=== PATIENT | female | born 1955 | race Caucasian/White ===

== ENCOUNTER 2018-01-28 22:53 | Inpatient (IN) | payer MEDICARE, OTHER ==
[~2018-01-28] VITALS: Ht 162.6 cm; Wt 65.0 kg
[~2018-01-28 22:53] MED LIST: ATOR80TA41 PO; BACL20TA PO; DIPH50TA PO; ECASA PO; ENAL10 PO; HCTZ25 PO; LORA-392 PO; NICO14T TD; RANI150 PO; TIZA4 PO
[2018-01-28 23:05] VITALS: BP 122/73; PULSE 52; PULSE 89; RESP 12; TEMP 97.7; O2SAT 96
[2018-01-28] MEDS ORDERED: SODIUM CHLOR 0.9% 1000 ML INJ 1,000 ML IV ONE (23:45)
--- NOTE | 2018-01-28 23:51 | PD ---
HPI Chief Complaint: Altered Mental Status Time Seen by Provider: 23:07 Travel History International Travel<30 days: No Contact w/Intl Traveler<30days: No Traveled to known affect area: No History of Present Illness HPI The patient is a 62 year old female who presents to the [facility] emergency department with a history of altered mentation and reportedly feeling unwell in general that began in the afternoon today. The patient is a resident at a local care home. The patient because of feeling unwell and having generalized fatigue refused to eat dinner and also refused to take her evening medications. The patient is normally on 3 L nasal cannula O2 continuously related to a history of COPD. The patient continues to smoke 1 pack of cigarettes per day. According to the record, the patient's O2 saturations were diminished on her usual 3 L down into the 80s. The patient also had scattered rhonchi according to ambulance services. The patient had IV access obtained prior to arrival. The patient's temperature was noted by ambulance services to be low at 97.4. She was noted to be bradycardic in the 40s-50s with an initial blood pressure of 92/54. The patient's blood sugar was 91. The patient reportedly was started on Augmentin 2 days ago related to a urinary tract infection. On arrival to this facility, the patient is drowsy. She has a dry mouth. She denies having any pain. She is able to state her name. She is also able to state her date of . The patient's history is limited as the patient is staring at the ceiling and is unable or unwilling to answer all of the questions that I am asking. The patient with repeat stimulation is attempted to answer simple questions. 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, history of tobacco use, acid reflux, COPD, recurrent urinary tract infections, hypertension, anxiety disorder, degenerative disc disease, arthritis Arthritis: Yes Asthma: No Autoimmune Disease: No Anxiety: Yes Depression: No Heart Rhythm Problems: Yes Cancer: No Cardiovascular Problems: Yes High Cholesterol: No Chemotherapy: No Chest Pain: No Congestive Heart Failure: No COPD: Yes Cerebrovascular Accident: Yes (right side hemiparesis) Diabetes: No Diminished Hearing: No Endocrine: No GERD: Yes Genitourinary: Yes Headaches: Yes Hypertension: Yes Immune Disorder: No Kidney Stones: No Musculoskeletal: Yes Neurologic: Yes Psychiatric: Yes Reproductive: No Respiratory: Yes Immunizations Current: No Migraines: No Radiation Therapy: No Renal Failure: No Seizures: No Sickle Cell Disease: No Sleep Apnea: No Thyroid Disease: No Tetanus Vaccination: Unknown Menopausal: Yes Past Surgical History Narrative Surgical The patient's past surgical history is significant for ankle surgery, stomach surgery Abdominal Surgery: No AICD: No Arteriovenous Shunt: No Cardiac Surgery: No Ear Surgery: No Endocrine Surgery: No Eye Surgery: No Genitourinary Surgery: No Gynecologic Surgery: No Insulin Pump: No Joint Replacement: No Neurologic Surgery: Yes (CVA 2013) Oral Surgery: No Pacemaker: No Thoracic Surgery: No Other Surgery: Yes (STOMACH SURGERY, FX ANKLE SURGERY) Social History Alcohol Use: No Tobacco Use: Yes (1 pack per day) Substance Use: No Allergies-Medications (Allergen,Severity, Reaction): Coded Allergies: No Known Allergies (Verified Adverse Reaction, Unknown, 01/28/18) Reported Meds & Prescriptions Reported Meds & Active Scripts Active Reported Tylenol (Acetaminophen) 325 Mg Tab 325 Mg PO ONCE Aleve Arthritis (Naproxen Sodium) 220 Mg Tab 220 Mg PO BID Aspirin 81 Mg Chew 81 Mg CHEW DAILY Augmentin (Amoxicillin-Clavulanate) 875-125 Mg Tab 1 Tab PO BID Vitamin D-1000 (Cholecalciferol) 1,000 Unit Tab 5,000 Units PO DAILY Vitamin C (Ascorbic Acid) 1,000 Mg Tablet.er Trazodone (Trazodone HCl) 50 Mg Tab 75 Mg PO HS Tizanidine (Tizanidine HCl) 2 Mg Tab 2 Mg PO TID Ranitidine (Ranitidine HCl) 150 Mg Tab 150 Mg PO BID Propranolol (Propranolol HCl) 10 Mg Tab 10 Mg PO Q12HR Nicotine Patch (Nicotine) 14 Mg/24 Hr Patch 14 Mg T-DERMAL DAILY Lyrica (Pregabalin) 150 Mg Cap 150 Mg PO TID Klonopin (Clonazepam) 0.5 Mg Tab 0.5 Mg PO QID Gabapentin 600 Mg Tab 600 Mg PO TID Ferrous Sulfate 325 Mg (65 Mg Iron) Tablet 325 Mg PO DAILY Docusate Sodium-Senna (Sennosides-Docusate Sodium) 8.6-50 Mg Tab 1 Tab PO HS Nuedexta 20-10 mg (Dextromethorphan HBr-Quinidine) 20 Mg-10 Mg Cap 1 Cap PO DAILY Flexeril (Cyclobenzaprine HCl) 5 Mg Tab 5 Mg PO BID Bupropion HCl ER 12 HR (Bupropion HCl) 150 Mg Tab 150 Mg PO BID Budesonide Neb 0.5 Mg/2 Ml Neb 0.5 Mg NEB DAILY NEB Baclofen 20 Mg Tab 20 Mg PO TID Review of Systems ROS Limitations: Altered Mental Status, Poor Historian Except as stated in HPI: all other systems reviewed are Neg Neurologic: Positive: Weakness (Generalized weakness and fatigue), Change in Mentation, No: Focal Abnormalities, Sensory Disturbance Psychiatric: No: Depression Endocrine: No: Polydipsia Hematologic/Lymphatic: No: Easy Bruising Physical Exam Narrative General: The patient is a well-developed well-nourished female in no acute distress, staring up to the ceiling on my arrival to the room. Head and Neck exam: Head is normocephalic atraumatic. Eyes: EOMI, pupils are equal round and reactive to light. Nose: Midline septum with pink mucous membranes Mouth: Dentition unremarkable. Dry mucus membranes. Posterior oropharynx is not erythematous. No tonsillar hypertrophy. Uvula midline. Airway patent. Neck: No palpable lymphadenopathy. No nuchal rigidity. No thyromegaly. Cardiovascular: Sinus bradycardia in the 50s without murmurs, gallops, or rubs. No pulse deficit to the extremities on simultaneous auscultation and palpation of his radial artery. Lungs: Clear to auscultation bilaterally. No wheezes, rhonchi, or rales. Abdomen: Soft, without tenderness to palpation in all 4 quadrants of the abdomen. No guarding, rebound, or rigidity. Normal bowel sounds are audible. No tenderness on palpation of McBurney's point. Negative Smith sign. Extremities: No clubbing, cyanosis, or edema. 2+ pulses in all 4 extremities. No calf tenderness on palpation. Back: No costovertebral angle tenderness to palpation. Neurologic Exam: The patient has residual right-sided weakness related to a prior stroke. The patient in general appears to be drowsy and has difficulty following commands, however on repeated redirection the patient is noted to move all extremities. The patient has decreased sensation on the right side presumably related to her prior stroke from reviewing the electronic medical record. The patient is oriented to person, birthdate, however not current time , place, or situation. Skin Exam: No rash noted. Intact skin that is warm and dry. Data Data Last Documented VS Vital Signs Date Time Temp Pulse Resp B/P (MAP) Pulse Ox O2 Delivery O2 Flow Rate FiO2 01/29/18 01:58 58 16 118/63 (81) 96 Nasal Cannula 2.00 01/28/18 23:05 97.7 Orders Orders Electrocardiogram (01/28/18 23:33) Complete Blood Count With Diff (01/28/18 23:33) Comprehensive Metabolic Panel (01/28/18 23:33) Creatine Kinase (Cpk) (01/28/18 23:33) Ckmb (Isoenzyme) Profile (01/28/18:) Troponin I (01/28/18:) B-Type Natriuretic Peptide (01/28/18 23:33) Prothrombin Time / Inr (Pt) (01/28/18 23:33) Act Partial Throm Time (Ptt) (01/28/18 23:33) Blood Culture (01/28/18 23:) C-Reactive Protein (Crp) (01/28/18 23:33) Lipase (01/28/18 23:33) Urinalysis - C+S If Indicated (01/28/18 23:33) Magnesium (Mg) (01/28/18:) Thyroid Stimulating Hormone (01/28/18 23:33) Chest, Single Ap (01/28/18 23:33) Iv Access Insert/Monitor (01/28/18 23:33) Ecg Monitoring (01/28/18 23:33) Oximetry (01/28/18 23:33) Urinary Catheter Insert/Apply (01/28/18 23:33) Drug Screen, Random Urine (01/28/18 23:33) Alcohol (Ethanol) (01/28/18 23:33) Lactic Acid Sepsis Protocol (01/28/18 23:33) Sodium Chlor 0.9% 1000 Ml Inj (Ns 1000 M (01/28/18 23:45) Ct Brain W/O Iv Contrast(Rout) (01/29/18 23:33) Urine Culture (01/28/18 23:30) Cefepime Inj (Maxipime Inj) (01/29/18 00:54) Admit Order (Ed Use Only) (01/29/18 02:49) Labs Laboratory Tests Test 01/28/18 23:30 White Blood Count 7.8 TH/MM3 Red Blood Count 4.64 MIL/MM3 Hemoglobin 14.5 GM/DL Hematocrit 43.4 % Mean Corpuscular Volume 93.6 FL Mean Corpuscular Hemoglobin 31.2 PG Mean Corpuscular Hemoglobin Concent 33.4 % Red Cell Distribution Width 13.1 % Platelet Count 338 TH/MM3 Mean Platelet Volume 8.7 FL Neutrophils (%) (Auto) 49.6 % Lymphocytes (%) (Auto) 32.9 % Monocytes (%) (Auto) 7.6 % Eosinophils (%) (Auto) 9.6 % Basophils (%) (Auto) 0.3 % Neutrophils # (Auto) 3.9 TH/MM3 Lymphocytes # (Auto) 2.6 TH/MM3 Monocytes # (Auto) 0.6 TH/MM3 Eosinophils # (Auto) 0.7 TH/MM3 Basophils # (Auto) 0.0 TH/MM3 CBC Comment DIFF FINAL Differential Comment Prothrombin Time 9.8 SEC Prothromb Time International Ratio 1.0 RATIO Activated Partial Thromboplast Time 21.4 SEC Urine Color YELLOW Urine Turbidity CLEAR Urine pH 6.5 Urine Specific [place] 1.015 Urine Protein NEG mg/dL Urine Glucose (UA) NEG mg/dL Urine Ketones NEG mg/dL Urine Occult Blood NEG Urine Nitrite POS Urine Bilirubin NEG Urine Urobilinogen LESS THAN 2.0 MG/DL Urine Leukocyte Esterase SMALL Urine RBC 1 /hpf Urine WBC 3 /hpf Urine Bacteria MANY /hpf Urine Mucus FEW /lpf Microscopic Urinalysis Comment CULTURE INDICATED Blood Urea Nitrogen 27 MG/DL Creatinine 1.04 MG/DL Random Glucose 80 MG/DL Total Protein 6.6 GM/DL Albumin 2.8 GM/DL Calcium Level 9.0 MG/DL Magnesium Level 2.3 MG/DL Alkaline Phosphatase 94 U/L Aspartate Amino Transf (AST/SGOT) 18 U/L Alanine Aminotransferase (ALT/SGPT) 30 U/L Total Bilirubin 0.4 MG/DL Sodium Level 141 MEQ/L Potassium Level 4.7 MEQ/L Chloride Level 107 MEQ/L Carbon Dioxide Level 26.1 MEQ/L Anion Gap 8 MEQ/L Estimat Glomerular Filtration Rate 54 ML/MIN Lactic Acid Level 1.0 mmol/L Total Creatine Kinase 57 U/L Troponin I LESS THAN 0.02 NG/ML C-Reactive Protein 3.20 MG/DL B-Type Natriuretic Peptide 15 PG/ML Lipase 101 U/L Thyroid Stimulating Hormone 3rd Gen 1.820 uIU/ML Urine Opiates Screen NEG Urine Barbiturates Screen NEG Urine Amphetamines Screen NEG Urine Benzodiazepines Screen NEG Urine Cocaine Screen NEG Urine Cannabinoids Screen NEG Ethyl Alcohol Level LESS THAN 3 MG/DL MDM Medical Decision Making Medical Screen Exam Complete: Yes Emergency Medical Condition: Yes Medical Record Reviewed: Yes Differential Diagnosis Intracranial abnormality, versus encephalopathy, versus sepsis, versus urinary tract infection, versus pneumonia, versus sedation from medications Narrative Course During the course of the patient's emergency department visit, the patient's history, examination, and differential diagnosis were reviewed with the patient. The patient was placed on a teletypesetter monitor with oximetry and frequent blood pressure monitoring. The patient had [-] IV access obtained and blood work sent for analysis. The patient had an EKG done on arrival that shows a sinus bradycardia heart rate of 52, QRS duration is 117 the [address] segment elevation. T waves are inverted in V1. The patient has a Q in lead III. The patient was initially provided normal saline 1 L IV fluid bolus. The patient was started on broad-spectrum antibiotic of cefepime when she was noted to have a urinary tract infection that had failed outpatient management. The patient's laboratory studies were reviewed and remarkable for 01/28/18 23:30 Total Protein 6.6, Albumin 2.8 L, Calcium Level 9.0, Magnesium Level 2.3, Alkaline Phosphatase 94, Aspartate Amino Transf (AST/SGOT) 18, Alanine Aminotransferase (ALT/SGPT) 30, Total Bilirubin 0.4, initial set of cardiac enzymes are unremarkable. The patient's BUN and creatinine are elevated compared to prior values in a patient with dry mucous membranes consistent with dehydration, BNP is within normal limits at 15, albumin 2.8, lipase 101, TSH 1.82, lactic acid is 1, PT 9.8, PTT 21.4, urinalysis shows positive nitrite small leukocyte esterase many bacteria, culture indicated. Urine drug screen is negative, alcohol level is less than 3 per Radiology studies were reviewed and remarkable for Last Impressions Chest X-Ray 01/28/18 0983 Signed Impressions: CONCLUSION: 1. Patchy infiltrate right lower lung. 2. Mild pulmonary venous congestion. CT scan of the brain shows no acute intracranial hemorrhage. The patient's chest x-ray was read as showing mild pulmonary venous congestion, however the patient's BNP is normal. Patchy infiltrate was noted in the right lower lung, or Zithromax was added onto the patient's regimen to cover for atypical causes of pneumonia. The patient's results were discussed with the patient, including the plan of care. I explained that further testing and/ or monitoring is indicated based on the patient's history, examination, and/ or laboratory findings. Therefore, I recommended admission for additional evaluation. The patient expressed understanding and was agreeable with this plan. The patient was admitted to the hospital in stable condition and sent to a bed under the care of Dr. Palomino. Physician Communication Physician Communication The patient's case including history, pertinent physical examination findings, and laboratory studies were discussed with Dr. Palomino. It was agreed that the patient would be admitted to Dr. Palomino's service. Diagnosis Primary Impression: UTI (urinary tract infection) Qualified Codes: N39.0 - Urinary tract infection, site not specified Additional Impressions: Pneumonia Qualified Codes: J18.1 - Lobar pneumonia, unspecified organism Altered mental status Qualified Codes: R40.0 - Somnolence Admitting Information Admitting Physician Requests: Admit Zahra Richey MD Jan 28, 2018 23:51
[2018-01-29] VITALS (9 sets, daily range): BP systolic 104–161; BP diastolic 54–72; PULSE 49–75; RESP 16–22; TEMP 96.4–98.5; O2SAT 94–98
[2018-01-29 00:26] LABS: BACTERIA, URINE MANY /hpf; BILIRUBIN, URINE NEG (NEG); BLOOD, URINE NEG (NEG); GLUCOSE,URINE NEG (NEG); KETONE, URINE NEG (NEG); MUCUS URINE FEW /lpf (OCC); NITRITE,URINE POS (NEG); PH, URINE 6.5 (5.0-8.5); URINE COLOR YELLOW (YELLW/STRAW); URINE LEUKOCYTE ESTERASE SMALL (NEG)
[2018-01-29 00:29] LABS: AUTOMATED NEUTROPHIL # 3.9 TH/MM3 (1.8-7.7); BASOPHIL % 0.3 % (0.0-2.0); EOSINOPHIL # 0.7 TH/MM3 (0-0.4); EOSINOPHIL % 9.6 % (0.0-4.0); HEMATOCRIT 43.4 % (35.0-46.0); HEMOGLOBIN 14.5 GM/DL (11.6-15.3); LYMPH % 32.9 % (9.0-44.0); LYMPHOCYTE # 2.6 TH/MM3 (1.0-4.8); MEAN CELL VOLUME 93.6 FL (80.0-100.0); MEAN CORPUSCULAR HEMOGLOBIN 31.2 PG (27.0-34.0); MEAN CORPUSCULAR HGB CONC 33.4 % (32.0-36.0); MEAN PLATELET VOLUME 8.7 FL (7.0-11.0); MONO % 7.6 % (0.0-8.0); MONOCYTE # 0.6 TH/MM3 (0-0.9); NEUT % 49.6 % (16.0-70.0); PLATELET COUNT 338 TH/MM3 (150-450); RED BLOOD COUNT 4.64 MIL/MM3 (4.00-5.30); RED CELL DISTRIBUTION WIDTH 13.1 % (11.6-17.2); WHITE BLOOD COUNT 7.8 TH/MM3 (4.0-11.0)
--- NOTE | 2018-01-29 00:41 | RADRPT ---
EXAM DATE: 01/29/2018 12:38 AM EDT AGE/SEX: 62 years / Female INDICATIONS: Shortness of breath. CLINICAL DATA: This is the patient's initial encounter. Patient reports that signs and symptoms have been present for 1 day and indicates a pain score of Nonresponsive. MEDICAL/SURGICAL HISTORY: Chronic obstructive pulmonary disease. Hypertension. None. COMPARISON: No prior [facility] exams available for comparison. FINDINGS: Patchy infiltrate in the right lung base. The left lung is grossly clear. There is mild pulmonary korina ous congestion. There is no pleural effusions. The heart size is within normal limits. The bony struc tures are grossly intact. CONCLUSION: 1. Patchy infiltrate right lower lung. 2. Mild pulmonary venous congestion. Electronically signed by: Ramiro Madrid MD 01/29/2018 12:39 AM EDT
[2018-01-29 00:43] LABS: PROTHROMBIN TIME - PATIENT 9.8 SEC (9.8-11.6)
[2018-01-29] MEDS ORDERED: CEFEPIME INJ 2,000 MG in SODIUM CHLORIDE 0.9% INJ 100 ML IV STA (00:54)
[2018-01-29 00:59] LABS: ALBUMIN 2.8 GM/DL (3.4-5.0); ALKALINE PHOSPHATASE 94 U/L (45-117); ALT (GPT) 30 U/L (10-53); AST (GOT) 18 U/L (15-37); BICARBONATE 26.1 MEQ/L (21.0-32.0); BLOOD UREA NITROGEN 27 MG/DL (7-18); CHLORIDE 107 MEQ/L (98-107); CREATININE 1.04 MG/DL (0.50-1.00); GLOMERULAR FILTRATION RATE 54 ML/MIN (>89); GLUCOSE,RANDOM 80 MG/DL (74-106); MAGNESIUM 2.3 MG/DL (1.5-2.5); SODIUM (NA) 141 MEQ/L (136-145); TOTAL BILIRUBIN ADULT 0.4 MG/DL (0.2-1.0); TOTAL PROTEIN 6.6 GM/DL (6.4-8.2); TROPONIN I LESS THAN 0.02 NG/ML (0.02-0.05)
--- NOTE | 2018-01-29 01:15 | RADRPT ---
EXAM DATE: 01/29/2018 1:04 AM EDT AGE/SEX: 62 years / Female INDICATIONS: Altered mental status. CLINICAL DATA: This is the patient's initial encounter. Patient reports that signs and symptoms have been present for 1 day and indicates a pain score of Nonresponsive. MEDICAL/SURGICAL HISTORY: Cerebrovascular disease. Hypertension. None. RADIATION DOSE: 56.35 CTDI (mGy) COMPARISON: synapse default, CT BRAIN W/O CONTRAST, 05/01/2016. . TECHNIQUE: CT of the head without contrast. Using automated exposure control and adjustment of the mA and/or kV according to patient size, radiation dose was kept as low as reasonably achievable to ob tain optimal diagnostic quality images. FINDINGS: Cerebrum: The ventricles are normal for age. No evidence of midline shift, mass lesion, hemorrhage or acute infarction. No extraaxial fluid collections are seen. Posterior Fossa: The cerebellum and brainstem are intact. Tiny old infarct in the midbrain. The 4th ventricle is midline. The cerebellopontine angle is unremarkable. Extracranial: The visualized portion of the orbits is intact. Skull: The calvaria is intact. No evidence of skull fracture. No significant changes compared to the prior exam. CONCLUSION: 1. No acute intracranial hemorrhage. 2. Stable CT brain compared to the prior study. Electronically signed by: Ramiro Madrid MD 01/29/2018 1:14 AM EDT
[2018-01-29] MEDS ORDERED: NUED20CA PO (01:49)
[2018-01-29] MEDS ORDERED: GABA600T PO (01:49)
[2018-01-29] MEDS ORDERED: BUPR150T5 PO (01:49)
[2018-01-29] MEDS ORDERED: CYCL5TAB PO (01:49)
[2018-01-29] MEDS ORDERED: BACL20TA PO (01:49)
[2018-01-29] MEDS ORDERED: BUDE0.5S NEB (01:49)
[2018-01-29] MEDS ORDERED: DOCU8.6T PO (01:49)
[2018-01-29] MEDS ORDERED: CLON.5 PO (01:49)
[2018-01-29] MEDS ORDERED: NICO14DI T-DERMAL (01:49)
[2018-01-29] MEDS ORDERED: FERR325T18 PO (01:49)
[2018-01-29] MEDS ORDERED: LYRI150C PO (01:49)
[2018-01-29] MEDS ORDERED: PROP10TA6 PO (01:49)
[2018-01-29] MEDS ORDERED: ALEV220T14 PO (03:41)
[2018-01-29] MEDS ORDERED: VITA1000 PO (03:41)
[2018-01-29] MEDS ORDERED: TIZA2TAB PO (03:41)
[2018-01-29] MEDS ORDERED: ASCO100029 (03:41)
[2018-01-29] MEDS ORDERED: RANI150T PO (03:41)
[2018-01-29] MEDS ORDERED: TRAZ50TA12 PO (03:41)
[2018-01-29] MEDS ORDERED: AUGM875T3 PO (03:41)
[2018-01-29] MEDS ORDERED: ASPI-516 CHEW (03:41)
[2018-01-29] MEDS ORDERED: TYLE325T PO (03:41)
[2018-01-29] MEDS ORDERED: AZITHROMYCIN INJ 500 MG in SODIUM CHLOR 0.9% 250 ML INJ 250 ML IV ONE (05:00)
[2018-01-29] MEDS ORDERED: PILL SPLITTER OTHER PRN (05:30)
[2018-01-29] MEDS ORDERED: LACTULOSE SYRUP 20 GM/30 ML CUP PO PRN (05:30)
[2018-01-29] MEDS ORDERED: NALOXONE HCL 0.4 MG/ML AMP IV PUSH PRN (05:30)
[2018-01-29] MEDS ORDERED: BISACODYL 10 MG SUPP RECTAL PRN (05:30)
[2018-01-29] MEDS ORDERED: MAGNESIUM HYDROXIDE SUSP 30 ML CUP PO PRN (05:30)
[2018-01-29] MEDS ORDERED: ACETAMINOPHEN 325 MG TAB PO ONE (05:30)
[2018-01-29] MEDS ORDERED: SENNOSIDES 8.6 MG TAB PO PRN (05:30)
[2018-01-29] MEDS: RESP: BUDESONIDE 0.5 MG/2 ML NEB NEB SCH (07:42)
--- NOTE | 2018-01-29 08:53 | HHI.HP ---
History of Present Illness Primary Care Physician Harvinder Quick MD Admission Diagnosis AMS, UTI, Dehydration Diagnoses: History of Present Illness The patient is a 62 year old female came to emergency department for altered mentation and reportedly feeling unwell in general that began in the afternoon today. The patient is a resident at [facility]. She is normally on 3 L nasal cannula O2 continuously related to a history of COPD. The patient continues to smoke 1 pack of cigarettes per day. She voices she quit 11 days ago. The patient also had scattered rhonchi according to ambulance services. She was started on Augmentin 2 days ago related to a urinary tract infection. She has a dry mouth, lip [peeling. She denies having any pain. She is able to state her name, and she can tell me the month "January" She is unsure how and why she is in the hospital. UA positive for nitrites, she does have some LISA. cxr show RLL pneumonia. (Jennifer Arguello) Past Family Social History Allergies: Coded Allergies: No Known Allergies (Verified Allergy, Unknown, 01/29/18) Past Medical History CVA HTN Anxiety DDD Arthritis COPD GERD Reported Medications Tylenol (Acetaminophen) 325 Mg Tab 325 Mg PO ONCE Aleve Arthritis (Naproxen Sodium) 220 Mg Tab 220 Mg PO BID Aspirin 81 Mg Chew 81 Mg CHEW DAILY Augmentin (Amoxicillin-Clavulanate) 875-125 Mg Tab 1 Tab PO BID Vitamin D-1000 (Cholecalciferol) 1,000 Unit Tab 5,000 Units PO DAILY Vitamin C (Ascorbic Acid) 1,000 Mg Tablet.er Trazodone (Trazodone HCl) 50 Mg Tab 75 Mg PO HS Tizanidine (Tizanidine HCl) 2 Mg Tab 2 Mg PO TID Ranitidine (Ranitidine HCl) 150 Mg Tab 150 Mg PO BID Propranolol (Propranolol HCl) 10 Mg Tab 10 Mg PO Q12HR Nicotine Patch (Nicotine) 14 Mg/24 Hr Patch 14 Mg T-DERMAL DAILY Lyrica (Pregabalin) 150 Mg Cap 150 Mg PO TID Klonopin (Clonazepam) 0.5 Mg Tab 0.5 Mg PO QID Gabapentin 600 Mg Tab 600 Mg PO TID Ferrous Sulfate 325 Mg (65 Mg Iron) Tablet 325 Mg PO DAILY Docusate Sodium-Senna (Sennosides-Docusate Sodium) 8.6-50 Mg Tab 1 Tab PO HS Nuedexta 20-10 mg (Dextromethorphan HBr-Quinidine) 20 Mg-10 Mg Cap 1 Cap PO DAILY Flexeril (Cyclobenzaprine HCl) 5 Mg Tab 5 Mg PO BID Bupropion HCl ER 12 HR (Bupropion HCl) 150 Mg Tab 150 Mg PO BID Budesonide Neb 0.5 Mg/2 Ml Neb 0.5 Mg NEB DAILY NEB Baclofen 20 Mg Tab 20 Mg PO TID Active Ordered Medications Current Medications Medications (Trade) Dose Ordered Sig/Tim Route Start Time Stop Time Status Last Admin (Aspirin Chew) 81 mg DAILY CHEW 01/29/18 09:00 (Pulmicort Respule Neb) 0.5 mg DAILY NEB NEB 01/29/18 08:00 (Vitamin D3) 5,000 units DAILY PO 01/29/18 09:00 (KlonoPIN) 0.5 mg QID PO 01/29/18 09:00 (Ferrous Sulfate) 325 mg DAILY PO 01/29/18 09:00 (Neurontin) 600 mg TID PO 01/29/18 09:00 (Inderal) 10 mg Q12HR PO 01/29/18 09:00 (Madeleine-Colace) 1 tab HS PO 01/29/18 21:00 (Zanaflex) 2 mg TID PO 01/29/18 09:00 (Desyrel) 75 mg HS PO 01/29/18 21:00 Patient Own Medication PT OWN MED: (Dextromethorphan HBr-Quinid... DAILY PO 01/29/18 09:00 Future Hold (Naprosyn) 250 mg BID PO 01/29/18 09:00 (Pepcid) 20 mg BID PO 01/29/18 09:00 (Pill Splitter) 1 ea UNSCH PRN OTHER 01/29/18 05:30 Cefepime HCl 2000 mg/Sodium Chloride 100 ml @ 200 mls/hr Q12H IV 01/29/18 14:00 (NS Flush) 2 ml UNSCH PRN IV FLUSH 01/29/18 05:30 (NS Flush) 2 ml BID IV FLUSH 01/29/18 09:00 (Lovenox Inj) 30 mg Q24H SQ 01/29/18 09:00 (Narcan Inj) 0.4 mg UNSCH PRN IV PUSH 01/29/18 05:30 (Madeleine-Colace) 1 tab BID PO 01/29/18 09:00 (Milk Of Magnesia Liq) 30 ml Q12H PRN PO 01/29/18 05:30 (Senokot) 17.2 mg Q12H PRN PO 01/29/18 05:30 (Dulcolax Supp) 10 mg DAILY PRN RECTAL 01/29/18 05:30 (Lactulose Liq) 30 ml DAILY PRN PO 01/29/18 05:30 Family History Unknown Social History 1 pck day smoker quit Denies ETOH (Jennifer Arguello) Physical Exam Vital Signs Vital Signs Date Time Temp Pulse Resp B/P (MAP) Pulse Ox O2 Delivery O2 Flow Rate FiO2 01/29/18 07:25 97.9 56 22 161/64 (96) 94 01/29/18 06:59 54 01/29/18 06:57 96.4 59 18 155/72 (99) 98 01/29/18 03:14 49 16 142/68 (92) 95 Nasal Cannula 2.00 01/29/18 01:58 58 16 118/63 (81) 96 Nasal Cannula 2.00 01/28/18 23:32 51 18 95 Nasal Cannula 3.00 01/28/18 23:05 97.7 52 12 122/73 (89) 96 Physical Exam GENERAL no apparent distress oral mucosa dry lips, peeling. SKIN: No rashes, ecchymoses or lesions. Cool and dry. HEAD: Atraumatic. Normocephalic. No temporal or scalp tenderness. EYES: Pupils equal round and reactive. ENT: Nose without bleeding. Airway patent. NECK: Trachea midline. No JVD or lymphadenopathy. Supple, nontender CARDIOVASCULAR: Regular rate and rhythm without murmurs, gallops, or rubs. RESPIRATORY Breath sounds equal bilaterally. slight wheezing, diminished at base GASTROINTESTINAL: Abdomen soft, non-tender, nondistended. MUSCULOSKELETAL: Extremities without clubbing, cyanosis, or edema. NEUROLOGICAL: Awake and alert. Cranial nerves II through XII intact. Normal speech. Laboratory Laboratory Tests Test 01/28/18 23:30 White Blood Count 7.8 Red Blood Count 4.64 Hemoglobin 14.5 Hematocrit 43.4 Mean Corpuscular Volume 93.6 Mean Corpuscular Hemoglobin 31.2 Mean Corpuscular Hemoglobin Concent 33.4 Red Cell Distribution Width 13.1 Platelet Count 338 Mean Platelet Volume 8.7 Neutrophils (%) (Auto) 49.6 Lymphocytes (%) (Auto) 32.9 Monocytes (%) (Auto) 7.6 Eosinophils (%) (Auto) 9.6 Basophils (%) (Auto) 0.3 Neutrophils # (Auto) 3.9 Lymphocytes # (Auto) 2.6 Monocytes # (Auto) 0.6 Eosinophils # (Auto) 0.7 Basophils # (Auto) 0.0 CBC Comment DIFF FINAL Differential Comment Prothrombin Time 9.8 Prothromb Time International Ratio 1.0 Activated Partial Thromboplast Time 21.4 Urine Color YELLOW Urine Turbidity CLEAR Urine pH 6.5 Urine Specific [place] 1.015 Urine Protein NEG Urine Glucose (UA) NEG Urine Ketones NEG Urine Occult Blood NEG Urine Nitrite POS Urine Bilirubin NEG Urine Urobilinogen LESS THAN 2.0 Urine Leukocyte Esterase SMALL Urine RBC 1 Urine WBC 3 Urine Bacteria MANY Urine Mucus FEW Microscopic Urinalysis Comment CULTURE INDICATED Blood Urea Nitrogen 27 Creatinine 1.04 Random Glucose 80 Total Protein 6.6 Albumin 2.8 Calcium Level 9.0 Magnesium Level 2.3 Alkaline Phosphatase 94 Aspartate Amino Transf (AST/SGOT) 18 Alanine Aminotransferase (ALT/SGPT) 30 Total Bilirubin 0.4 Sodium Level 141 Potassium Level 4.7 Chloride Level 107 Carbon Dioxide Level 26.1 Anion Gap 8 Estimat Glomerular Filtration Rate 54 Lactic Acid Level 1.0 Total Creatine Kinase 57 Troponin I LESS THAN 0.02 C-Reactive Protein 3.20 B-Type Natriuretic Peptide 15 Lipase 101 Thyroid Stimulating Hormone 3rd Gen 1.820 Urine Opiates Screen NEG Urine Barbiturates Screen NEG Urine Amphetamines Screen NEG Urine Benzodiazepines Screen NEG Urine Cocaine Screen NEG Urine Cannabinoids Screen NEG Ethyl Alcohol Level LESS THAN 3 Date/Time Source Procedure Growth Status 01/28/18 23:40 Blood Peripheral Aerobic Blood Culture Pending Received 01/28/18 23:40 Blood Peripheral Anaerobic Blood Culture Pending Received 01/28/18 23:30 Urine Random Urine Urine Culture Pending Received (Jennifer Arguello) Result Diagram: 01/28/18232901/28/182329 Imaging Last [address] 01/29/182332 Signed Impressions: CONCLUSION: 1. No acute intracranial hemorrhage. 2. Stable CT brain compared to the prior study. Chest X-Ray 01/28/182332 Signed Impressions: CONCLUSION: 1. Patchy infiltrate right lower lung. 2. Mild pulmonary venous congestion. (Jennifer Arguello) Caprini VTE Risk Assessment Caprini Risk Assessment Model Point Value = 1 Point Value = 2 Point Value = 3 Point Value = 5 Age 41-60 Minor surgery BMI > 25 kg/m2 Swollen legs Varicose veins or History of unexplained or recurrent spontaneous Oral contraceptives or hormone replacement Sepsis (< 1 month) Serious lung disease, including pneumonia (< 1 month) Abnormal pulmonary function Acute myocardial infarction Congestive heart failure (< 1 month) History of inflammatory bowel disease Medical patient at bed rest Age 61-74 Arthroscopic surgery Major open surgery (> 45 min) Laparoscopic surgery (> 45 min) Malignancy Confined to bed (> 72 hours) Immobilizing plaster cast Central venous access Age >= 75 History of VTE Family history of VTE Factor V Leiden Prothrombin [id number] Lupus anticoagulant Anticardiolipin antibodies Elevated serum homocysteine Heparin-induced thrombocytopenia Other congenital or acquired thrombophilia Stroke (< 1 month) Elective arthroplasty Hip, pelvis, or leg fracture Acute spinal cord injury (< 1 month) Prophylaxis Regimen Total Risk Factor Score Risk Level Prophylaxis Regimen 0-1 Low Early ambulation 2 Moderate Order ONE of the following: *Sequential Compression Device (SCD) *Heparin 5000 units SQ BID 3-4 Higher Order ONE of the following medications: *Heparin 5000 units SQ TID *Enoxaparin/Lovenox 40 mg SQ daily (WT < 150 kg, CrCl > 30 mL/min) *Enoxaparin/Lovenox 30 mg SQ daily (WT < 150 kg, CrCl > 10-29 mL/min) *Enoxaparin/Lovenox 30 mg SQ BID (WT < 150 kg, CrCl > 30 mL/min) AND/OR *Sequential Compression Device (SCD) 5 or more Highest Order ONE of the following medications: *Heparin 5000 units SQ TID (Preferred with Epidurals) *Enoxaparin/Lovenox 40 mg SQ daily (WT < 150 kg, CrCl > 30 mL/min) *Enoxaparin/Lovenox 30 mg SQ daily (WT < 150 kg, CrCl > 10-29 mL/min) *Enoxaparin/Lovenox 30 mg SQ BID (WT < 150 kg, CrCl > 30 mL/min) AND *Sequential Compression Device (SCD) (Jennifer Arguello) Caprini VTE Risk Assessment: No/Low Risk (score <= 1) (Malik Palomino DO) Assessment and Plan Problem List: (1) PNA (pneumonia) ICD Codes: J18.9 - Pneumonia, unspecified organism Plan: cefepime, zithromycin iv, Maintain sat's, Bronchodilators (2) UTI (urinary tract infection) ICD Codes: N39.0 - Urinary tract infection Status: Acute Plan: cefepime, culture pending Afebrile (3) LISA (acute kidney injury) ICD Codes: N17.9 - Acute kidney failure, unspecified Plan: IVF NS 100/hr, monitor BMP (4) COPD (chronic obstructive pulmonary disease) ICD Codes: J44.9 - Chronic obstructive pulmonary disease, unspecified Status: Chronic Plan: Bronchodilators, Maintain saturations, Nicotine patch (5) Hypertension ICD Codes: I10 - Hypertension Status: Chronic Plan: cont home medications, monitor (6) GERD (gastroesophageal reflux disease) ICD Codes: K21.9 - Gastroesophageal reflux disease Status: Acute Plan: PPI Assessment and Plan 01/29/18- Cardiology consulted for bradycardia, Troponin negative x 1, cont on tele. (Jennifer Arguello) Jennifer Arguello Jan 29, 2018 08:53 Malik Palomino DO Jan 31, 2018 19:34
[2018-01-29] MEDS: NAPROXEN 250 MG TAB PO SCH ×2 (09:00→22:03)
[2018-01-29] MEDS: CHOLECALCIFEROL (VIT D3) 5000 UNIT CAP PO SCH (09:00)
[2018-01-29] MEDS ORDERED: DEXTROMETHORPHAN HBR QUINIDINE PO SCH (09:00)
[2018-01-29] MEDS: ASPIRIN 81 MG CHEW TAB CHEW SCH (09:00)
[2018-01-29] MEDS: PROPRANOLOL HCL 10 MG TAB PO SCH ×2 (09:00→21:16)
[2018-01-29] MEDS: SODIUM CHLORIDE 0.9% FLUSH 10 ML FLUSH IV FLUSH SCH ×2 (09:00→21:17)
[2018-01-29] MEDS: clonazePAM 0.5 MG TAB PO SCH ×4 (10:31→21:16)
[2018-01-29] MEDS: FERROUS SULFATE 325 MG (65 MG ELEMENTAL IRON) TAB PO SCH (10:31)
[2018-01-29] MEDS: FAMOTIDINE 20 MG TAB PO SCH ×2 (10:32→21:16)
[2018-01-29] MEDS: DOCUSATE SODIUM 50 MG/SENNA 8.6 MG TAB PO SCH ×3 (10:32→21:15)
[2018-01-29] MEDS: GABAPENTIN 300 MG CAP PO SCH ×3 (10:32→16:44)
[2018-01-29] MEDS: ENOXAPARIN SODIUM 30 MG/0.3 ML SYRINGE SQ SCH (10:33)
[2018-01-29] MEDS: CEFEPIME INJ 2,000 MG in SODIUM CHLORIDE 0.9% INJ 100 ML IV SCH (15:00)
[2018-01-29] MEDS: SODIUM CHLOR 0.9% 1000 ML INJ 1,000 ML IV SCH ×2 (16:42→18:00)
--- NOTE | 2018-01-29 18:27 | MB ---
cc: Odilia Villalta MD, Ot[place]ar MD DATE: 01/29/2018 HISTORY OF PRESENT ILLNESS: Ms. Bray is a 62-year-old white female with a history of CVA, who was brought to the emergency room for altered mental status. She has not had any chest pain. She has mild shortness of breath. She is on home oxygen secondary to COPD. She has occasional palpitation. She denies any dizziness. She gives history of lower extremity edema. She states she quit smoking 11 days ago. PAST MEDICAL HISTORY: CVA, hypertension, anxiety, arthritis, COPD, gastroesophageal reflux disease. MEDICATIONS: 1. Baclofen. 2. Budesonide. 3. Bupropion. 4. Flexeril 6. Docusate. 7. Iron. 8. Gabapentin. 9. Klonopin. 10. Lyrica 11. Nicotine patch. 12. Propranolol. 13. Ranitidine. 14. Tizanidine. 15. Trazodone. 16. Vitamin C. 17. Vitamin D. 18. Augmentin. 19. Aspirin. 20. Aleve. 21. Tylenol. ALLERGIES: NONE. SOCIAL HISTORY: The patient smokes 1 pack a day. She denies alcohol. She states she quit smoking 11 days ago. FAMILY HISTORY: Negative for heart disease. REVIEW OF SYSTEMS: Otherwise negative. PHYSICAL EXAMINATION: VITAL SIGNS: Blood pressure 104/54, pulse 55 and regular. HEENT: Negative, 2+ carotid upstrokes, no bruits. LUNGS: With few wheezes and rhonchi. HEART: Regular with no murmur, gallop or rub. ABDOMEN: Soft, murmurs. EXTREMITIES: Trace edema, 1+ distal pulses. NEUROLOGIC: Grossly nonfocal. CARDIOLOGY STUDIES: EKG was reviewed and showed sinus bradycardia, 52 beats per minute, low voltage and inferior P-waves consistent with old inferior wall myocardial infarction. LABORATORY DATA: Hemoglobin 14.5, potassium 4.7, creatinine 1.0. Troponin negative x3. BNP 15. DIAGNOSES: 1. Sinus bradycardia. 2. Altered mental status. 3. Pneumonia. 4. Urinary tract infection. 5. Chronic obstructive pulmonary disease, on home oxygen. 6. Hypertension. 7. Gastroesophageal reflux disease. 8 History of cerebrovascular accident. DISPOSITION: Ms. Bray will be monitored on telemetry. Her electrocardiogram shows sinus bradycardia. We will obtain echocardiogram to evaluate her left ventricular function. If she has symptoms with her bradycardia, we will discontinue propranolol which is likely contributing to her bradycardia. I will follow her for cardiology during her hospitalization. MD ANNIE Tovar//hussein , 04:15 PM , 04:52 PM MIRTA
--- NOTE | 2018-01-29 19:04 | EKG ---
Date Performed: 01/28/2018 Time Performed: 23:16:26 PTAGE: 62 years EKG: SINUS BRADYCARDIA POSSIBLE LEFT ATRIAL ENLARGEMENT LOW QRS VOLTAGE IN PRECORDIAL LEADS OLD INFERIOR MYOCARDIAL INFARCTION ABNORMAL ECG PREVIOUS TRACING : 05/01/2016 05.15 Since the previous tracing, no significant change noted DOCTOR: Odilia Villalta Interpretating Date/Time 01/29/2018 19:02:25
[2018-01-29] MEDS: traZODone HCL 50 MG TAB PO SCH (21:16)
[2018-01-29] MEDS: SODIUM CHLORIDE 0.9% FLUSH 10 ML FLUSH IV FLUSH PRN (21:17)
[2018-01-30] VITALS (9 sets, daily range): BP systolic 134–163; BP diastolic 63–88; PULSE 54–84; RESP 18–20; TEMP 97.4–98.1; O2SAT 95–99
[2018-01-30] MEDS: CEFEPIME INJ 2,000 MG in SODIUM CHLORIDE 0.9% INJ 100 ML IV SCH ×2 (02:53→13:22)
[2018-01-30] MEDS: SODIUM CHLOR 0.9% 1000 ML INJ 1,000 ML IV SCH ×2 (02:54→15:45)
[2018-01-30] MEDS: SODIUM CHLORIDE 0.9% FLUSH 10 ML FLUSH IV FLUSH PRN ×2 (02:54→20:49)
[2018-01-30 07:22] LABS: AUTOMATED NEUTROPHIL # 3.7 TH/MM3 (1.8-7.7); BASOPHIL % 0.5 % (0.0-2.0); EOSINOPHIL # 0.7 TH/MM3 (0-0.4); EOSINOPHIL % 9.4 % (0.0-4.0); HEMATOCRIT 41.7 % (35.0-46.0); HEMOGLOBIN 13.9 GM/DL (11.6-15.3); LYMPH % 34.8 % (9.0-44.0); LYMPHOCYTE # 2.8 TH/MM3 (1.0-4.8); MEAN CELL VOLUME 93.6 FL (80.0-100.0); MEAN CORPUSCULAR HEMOGLOBIN 31.2 PG (27.0-34.0); MEAN CORPUSCULAR HGB CONC 33.3 % (32.0-36.0); MEAN PLATELET VOLUME 8.5 FL (7.0-11.0); MONO % 9.8 % (0.0-8.0); MONOCYTE # 0.8 TH/MM3 (0-0.9); NEUT % 45.5 % (16.0-70.0); PLATELET COUNT 322 TH/MM3 (150-450); RED BLOOD COUNT 4.46 MIL/MM3 (4.00-5.30)
[2018-01-30 07:46] LABS: ALBUMIN 2.7 GM/DL (3.4-5.0); AST (GOT) 16 U/L (15-37); BICARBONATE 29.1 MEQ/L (21.0-32.0); BLOOD UREA NITROGEN 17 MG/DL (7-18); CALCIUM 9.1 MG/DL (8.5-10.1); CHLORIDE 107 MEQ/L (98-107); GLOMERULAR FILTRATION RATE 102 ML/MIN (>89); GLUCOSE,RANDOM 83 MG/DL (74-106); SODIUM (NA) 143 MEQ/L (136-145)
[2018-01-30 07:47] LABS: ALT (GPT) 30 U/L (10-53)
[2018-01-30 07:49] LABS: ALKALINE PHOSPHATASE 93 U/L (45-117); TOTAL BILIRUBIN ADULT 0.3 MG/DL (0.2-1.0); TOTAL PROTEIN 6.2 GM/DL (6.4-8.2)
--- NOTE | 2018-01-30 08:21 | HHI.PR ---
Subjective Remarks No reported complaints want to go home Objective Vital Signs Date Time Temp Pulse Resp B/P (MAP) Pulse Ox O2 Delivery O2 Flow Rate FiO2 01/30/18 07:40 98.0 60 20 163/85 (111) 95 01/30/18 05:25 97.5 54 20 152/65 (94) 98 01/30/18 01:18 97.5 54 18 134/63 (86) 99 01/29/18 20:30 98.2 72 18 126/65 (85) 97 01/29/18 16:30 98.5 75 19 133/67 (89) 97 01/29/18 11:55 98.1 65 17 104/54 (71) 97 01/29/18 08:20 54 I/O 01/29/18 01/29/18 01/29/18 01/30/18 01/30/18 01/30/18 07:00 15:00 23:00 07:00 15:00 23:00 Output Total 1925 ml 1000 ml Balance -1925 ml -1000 ml Output Urine Total 1925 ml 1000 ml Result Diagram: 01/30/18 0635 01/30/18 0635 Imaging Last [address] 01/29/18 2333 Signed Impressions: CONCLUSION: 1. No acute intracranial hemorrhage. 2. Stable CT brain compared to the prior study. Chest X-Ray 01/28/18 2333 Signed Impressions: CONCLUSION: 1. Patchy infiltrate right lower lung. 2. Mild pulmonary venous congestion. Objective Remarks GENERAL no apparent distress oral mucosa dry lips, peeling. SKIN: No rashes, ecchymoses or lesions. Cool and dry. HEAD: Atraumatic. Normocephalic. No temporal or scalp tenderness. EYES: Pupils equal round and reactive. ENT: Nose without bleeding. Airway patent. NECK: Trachea midline. No JVD or lymphadenopathy. Supple, nontender CARDIOVASCULAR: Regular rate and rhythm without murmurs, gallops, or rubs. RESPIRATORY Breath sounds equal bilaterally. slight wheezing, diminished at base GASTROINTESTINAL: Abdomen soft, non-tender, nondistended. MUSCULOSKELETAL: Extremities without clubbing, cyanosis, or edema. NEUROLOGICAL: Awake and alert. Cranial nerves II through XII intact. Normal speech. Medications and IVs Current Medications Medications (Trade) Dose Ordered Sig/Tim Route Start Time Stop Time Status Last Admin (Aspirin Chew) 81 mg DAILY CHEW 01/29/18 09:00 (Pulmicort Respule Neb) 0.5 mg DAILY NEB NEB 01/29/18 08:00 (Vitamin D3) 5,000 units DAILY PO 01/29/18 09:00 (KlonoPIN) 0.5 mg QID PO 01/29/18 09:00 01/29/18 21:16 (Ferrous Sulfate) 325 mg DAILY PO 01/29/18 09:00 01/29/18 10:31 (Neurontin) 600 mg TID PO 01/29/18 09:00 01/29/18 16:44 (Inderal) 10 mg Q12HR PO 01/29/18 09:00 01/29/18 21:16 (Madeleine-Colace) 1 tab HS PO 01/29/18 21:00 01/29/18 21:15 (Zanaflex) 2 mg TID PO 01/29/18 09:00 01/29/18 16:44 (Desyrel) 75 mg HS PO 01/29/18 21:00 01/29/18 21:16 Patient Own Medication PT OWN MED: (Dextromethorphan HBr-Quinid... DAILY PO 01/29/18 09:00 Future Hold (Naprosyn) 250 mg BID PO 01/29/18 09:00 01/29/18 22:03 (Pepcid) 20 mg BID PO 01/29/18 09:00 01/29/18 21:16 (Pill Splitter) 1 ea UNSCH PRN OTHER 01/29/18 05:30 Cefepime HCl 2000 mg/Sodium Chloride 100 ml @ 200 mls/hr Q12H IV 01/29/18 14:00 01/30/18 02:53 (NS Flush) 2 ml UNSCH PRN IV FLUSH 01/29/18 05:30 01/30/18 02:54 (NS Flush) 2 ml BID IV FLUSH 01/29/18 09:00 01/29/18 21:17 (Lovenox Inj) 30 mg Q24H SQ 01/29/18 09:00 01/29/18 10:33 (Narcan Inj) 0.4 mg UNSCH PRN IV PUSH 01/29/18 05:30 (Madeleine-Colace) 1 tab BID PO 01/29/18 09:00 01/29/18 10:32 (Milk Of Magnesia Liq) 30 ml Q12H PRN PO 01/29/18 05:30 (Senokot) 17.2 mg Q12H PRN PO 01/29/18 05:30 (Dulcolax Supp) 10 mg DAILY PRN RECTAL 01/29/18 05:30 (Lactulose Liq) 30 ml DAILY PRN PO 01/29/18 05:30 (Habitrol 21 Mg Patch.24 Hr) 1 patch DAILY T-DERMAL 01/30/18 09:00 Miscellaneous Information 1 DAILY T-DERMAL 01/31/18 09:00 Sodium Chloride 1,000 ml @ 100 mls/hr Q10H IV 01/29/18 09:45 01/30/18 02:54 Assessment and Plan Problem List: (1) PNA (pneumonia) ICD Codes: J18.9 - Pneumonia, unspecified organism Plan: cefepime, zithromycin iv, Maintain sat's, Bronchodilators (2) UTI (urinary tract infection) ICD Codes: N39.0 - Urinary tract infection Status: Acute Plan: cefepime, culture pending Afebrile (3) LISA (acute kidney injury) ICD Codes: N17.9 - Acute kidney failure, unspecified Plan: IVF NS 100/hr, monitor BMP (4) COPD (chronic obstructive pulmonary disease) ICD Codes: J44.9 - Chronic obstructive pulmonary disease, unspecified Status: Chronic Plan: Bronchodilators, Maintain saturations, Nicotine patch (5) Hypertension ICD Codes: I10 - Hypertension Status: Chronic Plan: cont home medications, monitor (6) GERD (gastroesophageal reflux disease) ICD Codes: K21.9 - Gastroesophageal reflux disease Status: Acute Plan: PPI Assessment and Plan 01/29/18- Cardiology consulted for bradycardia, Troponin negative x 1, cont on tele. 01/30/18- Afebrile, HR still running low. Seen by cardiology, Echo to be done. renal functions improved. Will dc IVF. Labs unremarkable.Urine culture still pending. Likely DC back to [place] in am once cleared by cardiology. Jennifer Arguello Jan 30, 2018 08:21
[2018-01-30] MEDS ORDERED: CEFU1TAB18 PO (08:37)
[2018-01-30] MEDS: NICOTINE 21 MG/24 HR PATCH T-DERMAL SCH (08:40)
[2018-01-30] MEDS: GABAPENTIN 300 MG CAP PO SCH ×2 (08:41→12:22)
[2018-01-30] MEDS: DOCUSATE SODIUM 50 MG/SENNA 8.6 MG TAB PO SCH ×3 (08:41→20:48)
[2018-01-30] MEDS: ENOXAPARIN SODIUM 30 MG/0.3 ML SYRINGE SQ SCH (08:41)
[2018-01-30] MEDS: NAPROXEN 250 MG TAB PO SCH (08:41)
[2018-01-30] MEDS: CHOLECALCIFEROL (VIT D3) 5000 UNIT CAP PO SCH (08:42)
[2018-01-30] MEDS: FERROUS SULFATE 325 MG (65 MG ELEMENTAL IRON) TAB PO SCH (08:42)
[2018-01-30] MEDS: FAMOTIDINE 20 MG TAB PO SCH (08:42)
[2018-01-30] MEDS: SODIUM CHLORIDE 0.9% FLUSH 10 ML FLUSH IV FLUSH SCH ×2 (08:42→20:49)
[2018-01-30] MEDS: ASPIRIN 81 MG CHEW TAB CHEW SCH (08:42)
[2018-01-30] MEDS: PROPRANOLOL HCL 10 MG TAB PO SCH ×2 (08:42→20:47)
[2018-01-30] MEDS: clonazePAM 0.5 MG TAB PO SCH ×4 (08:42→20:47)
[2018-01-30] MEDS: RESP: BUDESONIDE 0.5 MG/2 ML NEB NEB SCH (08:47)
--- NOTE | 2018-01-30 17:56 | PD.CARD.PN ---
Subjective Subjective Remarks No CP or SOB, feels better, mildly confused Objective Medications Current Medications Medications (Trade) Dose Ordered Sig/Tim Route Start Time Stop Time Status Last Admin (Aspirin Chew) 81 mg DAILY CHEW 01/29/18 09:00 01/30/18 08:42 (Pulmicort Respule Neb) 0.5 mg DAILY NEB NEB 01/29/18 08:00 (Vitamin D3) 5,000 units DAILY PO 01/29/18 09:00 01/30/18 08:42 (KlonoPIN) 0.5 mg QID PO 01/29/18 09:00 01/30/18 17:26 (Inderal) 10 mg Q12HR PO 01/29/18 09:00 01/30/18 08:42 (Madeleine-Colace) 1 tab HS PO 01/29/18 21:00 01/29/18 21:15 (Zanaflex) 2 mg TID PO 01/29/18 09:00 01/30/18 17:26 (Desyrel) 75 mg HS PO 01/29/18 21:00 01/29/18 21:16 Patient Own Medication PT OWN MED: (Dextromethorphan HBr-Quinid... DAILY PO 01/29/18 09:00 Future Hold (Pill Splitter) 1 ea UNSCH PRN OTHER 01/29/18 05:30 Cefepime HCl 2000 mg/Sodium Chloride 100 ml @ 200 mls/hr Q12H IV 01/29/18 14:00 01/30/18 13:22 (NS Flush) 2 ml UNSCH PRN IV FLUSH 01/29/18 05:30 01/30/18 02:54 (NS Flush) 2 ml BID IV FLUSH 01/29/18 09:00 01/29/18 21:17 (Lovenox Inj) 30 mg Q24H SQ 01/29/18 09:00 01/30/18 08:41 (Narcan Inj) 0.4 mg UNSCH PRN IV PUSH 01/29/18 05:30 (Madeleine-Colace) 1 tab BID PO 01/29/18 09:00 01/30/18 08:41 (Milk Of Magnesia Liq) 30 ml Q12H PRN PO 01/29/18 05:30 (Senokot) 17.2 mg Q12H PRN PO 01/29/18 05:30 (Dulcolax Supp) 10 mg DAILY PRN RECTAL 01/29/18 05:30 (Lactulose Liq) 30 ml DAILY PRN PO 01/29/18 05:30 (Habitrol 21 Mg Patch.24 Hr) 1 patch DAILY T-DERMAL 01/30/18 09:00 01/30/18 08:40 Miscellaneous Information 1 DAILY T-DERMAL 01/31/18 09:00 Sodium Chloride 1,000 ml @ 100 mls/hr Q10H IV 01/29/18 09:45 01/30/18 02:54 (Deltasone) 20 mg BID PO 01/30/18 21:00 Vital Signs / I&O Vital Signs Date Time Temp Pulse Resp B/P (MAP) Pulse Ox O2 Delivery O2 Flow Rate FiO2 01/30/18 17:21 74 01/30/18 16:49 98.1 83 20 142/84 (103) 97 01/30/18 12:30 73 01/30/18 11:59 97.4 67 20 148/88 (108) 98 01/30/18 09:52 72 01/30/18 07:40 98.0 60 20 163/85 (111) 95 01/30/18 05:25 97.5 54 20 152/65 (94) 98 01/30/18 01:18 97.5 54 18 134/63 (86) 99 01/29/18 20:30 98.2 72 18 126/65 (85) 97 I/O 01/29/18 01/29/18 01/29/18 01/30/18 01/30/18 01/30/18 07:00 15:00 23:00 07:00 15:00 23:00 Intake Total 820 ml Output Total 1925 ml 1000 ml 1000 ml Balance -1925 ml -1000 ml -180 ml Intake Oral 720 ml IV Total 100 ml Output Urine Total 1925 ml 1000 ml 1000 ml # Voids 4 # Bowel Movements 1 Physical Exam GENERAL: In NAD. SKIN: Warm and dry. HEAD: Normocephalic. EYES: No scleral icterus. No injection or drainage. NECK: Supple, trachea midline. No JVD or lymphadenopathy. CARDIOVASCULAR: Regular rate and rhythm without murmurs, gallops, or rubs. RESPIRATORY: Breath sounds equal bilaterally. No accessory muscle use. GASTROINTESTINAL: Abdomen soft, non-tender, nondistended. MUSCULOSKELETAL: No cyanosis, or edema. Laboratory Laboratory Tests Test 01/30/18 06:35 White Blood Count 8.0 TH/MM3 Red Blood Count 4.46 MIL/MM3 Hemoglobin 13.9 GM/DL Hematocrit 41.7 % Mean Corpuscular Volume 93.6 FL Mean Corpuscular Hemoglobin 31.2 PG Mean Corpuscular Hemoglobin Concent 33.3 % Red Cell Distribution Width 13.0 % Platelet Count 322 TH/MM3 Mean Platelet Volume 8.5 FL Neutrophils (%) (Auto) 45.5 % Lymphocytes (%) (Auto) 34.8 % Monocytes (%) (Auto) 9.8 % Eosinophils (%) (Auto) 9.4 % Basophils (%) (Auto) 0.5 % Neutrophils # (Auto) 3.7 TH/MM3 Lymphocytes # (Auto) 2.8 TH/MM3 Monocytes # (Auto) 0.8 TH/MM3 Eosinophils # (Auto) 0.7 TH/MM3 Basophils # (Auto) 0.0 TH/MM3 CBC Comment DIFF FINAL Differential Comment Blood Urea Nitrogen 17 MG/DL Creatinine 0.60 MG/DL Random Glucose 83 MG/DL Total Protein 6.2 GM/DL Albumin 2.7 GM/DL Calcium Level 9.1 MG/DL Alkaline Phosphatase 93 U/L Aspartate Amino Transf (AST/SGOT) 16 U/L Alanine Aminotransferase (ALT/SGPT) 30 U/L Total Bilirubin 0.3 MG/DL Sodium Level 143 MEQ/L Potassium Level 4.2 MEQ/L Chloride Level 107 MEQ/L Carbon Dioxide Level 29.1 MEQ/L Anion Gap 7 MEQ/L Estimat Glomerular Filtration Rate 102 ML/MIN Imaging Last [address] 01/29/18 5513 Signed Impressions: CONCLUSION: 1. No acute intracranial hemorrhage. 2. Stable CT brain compared to the prior study. Assessment and Plan Problem List: (1) Sinus bradycardia ICD Codes: R00.1 - Bradycardia, unspecified (2) Hypertension ICD Codes: I10 - Hypertension Status: Chronic (3) PNA (pneumonia) ICD Codes: J18.9 - Pneumonia, unspecified organism (4) UTI (urinary tract infection) ICD Codes: N39.0 - Urinary tract infection Status: Acute Assessment and Plan Tele with no significant arrhythmias. HR mildly decreased, exacerbated by propranolol, but relatively asymptomatic. Continue current program including tx for PNA and UTI. Increase activity, PT. OK to discharge home from cardiac standpoint tomorrow as planned. Odilia Villalta MD Jan 30, 2018 17:56
[2018-01-30] MEDS: DEXT 5%-NACL 0.45% 1000 ML INJ 1,000 ML IV SCH (18:44)
[2018-01-30] MEDS: traZODone HCL 50 MG TAB PO SCH (20:47)
[2018-01-30] MEDS: predniSONE 20 MG TAB PO SCH (20:47)
--- NOTE | 2018-01-30 22:29 | RADRPT ---
EXAM DATE: 01/30/2018 10:23 PM EDT AGE/SEX: 62 years / Female INDICATIONS: Generalized weakness. CLINICAL DATA: This is the patient's initial encounter. Patient reports that signs and symptoms have been present for 1 day and indicates a pain score of 0/10. MEDICAL/SURGICAL HISTORY: Cerebrovascular disease. Hypertension. Osteoporosis. None. RADIATION DOSE: 30.15 CTDI (mGy) COMPARISON: [facility] [place], CT BRAIN W/O CONTRAST, 01/29/2018. . TECHNIQUE: CT of the head without contrast. Using automated exposure control and adjustment of the mA and/or kV according to patient size, radiation dose was kept as low as reasonably achievable to ob tain optimal diagnostic quality images. FINDINGS: There is mild motion artifact. Cerebrum: There is mild generalized atrophy and ventricles are normal given the degree of atrophy. M ild periventricular white matter change is present. No midline shift, mass lesion, hemorrhage or acu te infarction. No extraaxial fluid collections are seen. Posterior Fossa: The cerebellum and brainstem demonstrate no acute abnormality. The 4th ventricle is midline. The cerebellopontine angle is within normal limits. Extracranial: The visualized sinuses are clear. Skull: The calvaria is intact. No skull fracture. CONCLUSION: 1. Examination quality mildly degraded by motion artifact. 2. Stable noncontrast head CT with mild generalized atrophy and mild periventricular white matter ch fabián. Electronically signed by: Geovany Gonzalez MD 01/30/2018 10:27 PM EDT
[2018-01-31] VITALS (14 sets, daily range): BP systolic 104–187; BP diastolic 57–112; PULSE 70–119; RESP 19–20; TEMP 97.5–98.2; O2SAT 92–98
[2018-01-31] MEDS: CEFEPIME INJ 2,000 MG in SODIUM CHLORIDE 0.9% INJ 100 ML IV SCH ×3 (02:00→14:33)
[2018-01-31] MEDS: RESP: BUDESONIDE 0.5 MG/2 ML NEB NEB SCH (08:19)
[2018-01-31] MEDS: DEXT 5%-NACL 0.45% 1000 ML INJ 1,000 ML IV SCH ×2 (08:55→21:15)
[2018-01-31] MEDS: PROPRANOLOL HCL 10 MG TAB PO SCH (08:59)
[2018-01-31] MEDS: REMOVE OLD PATCH T-DERMAL SCH (09:00)
[2018-01-31] MEDS: clonazePAM 0.5 MG TAB PO SCH ×4 (09:00→21:19)
[2018-01-31] MEDS: ENOXAPARIN SODIUM 30 MG/0.3 ML SYRINGE SQ SCH (09:00)
[2018-01-31] MEDS: CHOLECALCIFEROL (VIT D3) 5000 UNIT CAP PO SCH (09:00)
[2018-01-31] MEDS: predniSONE 20 MG TAB PO SCH ×2 (09:00→21:19)
[2018-01-31] MEDS: NICOTINE 21 MG/24 HR PATCH T-DERMAL SCH (09:00)
[2018-01-31] MEDS: ASPIRIN 81 MG CHEW TAB CHEW SCH (09:00)
[2018-01-31] MEDS: DOCUSATE SODIUM 50 MG/SENNA 8.6 MG TAB PO SCH ×2 (09:00→21:19)
[2018-01-31] MEDS: SODIUM CHLORIDE 0.9% FLUSH 10 ML FLUSH IV FLUSH SCH ×2 (09:00→21:20)
[2018-01-31] MEDS: LISINOPRIL 10 MG TAB PO SCH (09:01)
--- NOTE | 2018-01-31 09:03 | HHI.PR ---
Subjective Remarks BP high this am Not wanting to take medications Objective Vital Signs Date Time Temp Pulse Resp B/P (MAP) Pulse Ox O2 Delivery O2 Flow Rate FiO2 01/31/18 08:23 92 Nasal Cannula 2.00 01/31/18 08:02 98.2 117 20 160/107 (124) 97 01/31/18 05:45 98.0 119 20 187/98 (127) 98 01/31/18 00:30 98.0 80 19 148/69 (95) 98 01/30/18 20:45 97.7 84 19 150/72 (98) 97 01/30/18 17:21 74 01/30/18 16:49 98.1 83 20 142/84 (103) 97 01/30/18 12:30 73 01/30/18 11:59 97.4 67 20 148/88 (108) 98 01/30/18 09:52 72 I/O 01/30/18 01/30/18 01/30/18 01/31/18 01/31/18 01/31/18 07:00 15:00 23:00 07:00 15:00 23:00 Intake Total 1770 ml 550 ml Output Total 1525 ml 1200 ml Balance 245 ml -650 ml Intake Oral 1170 ml 550 ml IV Total 600 ml Output Urine Total 1525 ml 1200 ml # Voids 4 3 # Bowel Movements 1 0 0 Result Diagram: 01/30/18 0635 01/30/18 0635 Imaging Last [address] 01/30/18 0000 Signed Impressions: CONCLUSION: 1. Examination quality mildly degraded by motion artifact. 2. Stable noncontrast head CT with mild generalized atrophy and mild periventr icular white matter change. Head CT 01/29/18 2333 Signed Impressions: CONCLUSION: 1. No acute intracranial hemorrhage. 2. Stable CT brain compared to the prior study. Chest X-Ray 01/28/182332 Signed Impressions: CONCLUSION: 1. Patchy infiltrate right lower lung. 2. Mild pulmonary venous congestion. Other Results Microbiology Date/Time Source Procedure Growth Status 01/28/18 23:40 Blood Peripheral Aerobic Blood Culture - Preliminary Gram Positive Cocci Resulted 01/28/18 23:40 Anaerobic Blood Culture - Preliminary Gram Positive Cocci Resulted 01/28/18 23:35 Blood Peripheral Aerobic Blood Culture - Preliminary Staphylococcus Epidermidis Resulted 01/28/18 23:35 Blood Peripheral Anaerobic Blood Culture - Preliminary NO GROWTH IN 1 DAY Resulted 01/28/18 23:30 Urine Random Urine Urine Culture - Final Escherichia Coli Complete Objective Remarks GENERAL no apparent distress oral mucosa dry lips, peeling. SKIN: No rashes, ecchymoses or lesions. Cool and dry. HEAD: Atraumatic. Normocephalic. No temporal or scalp tenderness. EYES: Pupils equal round and reactive. ENT: Nose without bleeding. Airway patent. NECK: Trachea midline. No JVD or lymphadenopathy. Supple, nontender CARDIOVASCULAR: Regular rate and rhythm without murmurs, gallops, or rubs. RESPIRATORY Breath sounds equal bilaterally. slight wheezing, diminished at base GASTROINTESTINAL: Abdomen soft, non-tender, nondistended. MUSCULOSKELETAL: Extremities without clubbing, cyanosis, or edema. NEUROLOGICAL: Awake and alert. Cranial nerves II through XII intact. Normal speech. Medications and IVs Current Medications Medications (Trade) Dose Ordered Sig/Tim Route Start Time Stop Time Status Last Admin (Aspirin Chew) 81 mg DAILY CHEW 01/29/18 09:00 01/30/18 08:42 (Pulmicort Respule Neb) 0.5 mg DAILY NEB NEB 01/29/18 08:00 01/31/18 08:19 (Vitamin D3) 5,000 units DAILY PO 01/29/18 09:00 01/30/18 08:42 (KlonoPIN) 0.5 mg QID PO 01/29/18 09:00 01/30/18 20:47 (Inderal) 10 mg Q12HR PO 01/29/18 09:00 01/30/18 20:47 (Madeleine-Colace) 1 tab HS PO 01/29/18 21:00 01/29/18 21:15 (Zanaflex) 2 mg TID PO 01/29/18 09:00 01/30/18 17:26 (Desyrel) 75 mg HS PO 01/29/18 21:00 01/30/18 20:47 Patient Own Medication PT OWN MED: (Dextromethorphan HBr-Quinid... DAILY PO 01/29/18 09:00 Future Hold (Pill Splitter) 1 ea UNSCH PRN OTHER 01/29/18 05:30 Cefepime HCl 2000 mg/Sodium Chloride 100 ml @ 200 mls/hr Q12H IV 01/29/18 14:00 01/31/18 02:00 (NS Flush) 2 ml UNSCH PRN IV FLUSH 01/29/18 05:30 01/30/18 20:49 (NS Flush) 2 ml BID IV FLUSH 01/29/18 09:00 01/30/18 20:49 (Lovenox Inj) 30 mg Q24H SQ 01/29/18 09:00 01/30/18 08:41 (Narcan Inj) 0.4 mg UNSCH PRN IV PUSH 01/29/18 05:30 (Madeleine-Colace) 1 tab BID PO 01/29/18 09:00 01/30/18 08:41 (Milk Of Magnesia Liq) 30 ml Q12H PRN PO 01/29/18 05:30 (Senokot) 17.2 mg Q12H PRN PO 01/29/18 05:30 (Dulcolax Supp) 10 mg DAILY PRN RECTAL 01/29/18 05:30 (Lactulose Liq) 30 ml DAILY PRN PO 01/29/18 05:30 (Habitrol 21 Mg Patch.24 Hr) 1 patch DAILY T-DERMAL 01/30/18 09:00 01/30/18 08:40 Miscellaneous Information 1 DAILY T-DERMAL 01/31/18 09:00 (Deltasone) 20 mg BID PO 01/30/18 21:00 01/30/18 20:47 Dextrose/Sodium Chloride 1,000 ml @ 75 mls/hr [id number] IV 01/30/18 18:30 01/31/18 08:55 Assessment and Plan Problem List: (1) PNA (pneumonia) ICD Codes: J18.9 - Pneumonia, unspecified organism Plan: cefepime, zithromycin iv, Maintain sat's, Bronchodilators (2) UTI (urinary tract infection) ICD Codes: N39.0 - Urinary tract infection Status: Acute Plan: cefepime, culture pending Afebrile (3) LISA (acute kidney injury) ICD Codes: N17.9 - Acute kidney failure, unspecified Plan: IVF NS 100/hr, monitor BMP (4) COPD (chronic obstructive pulmonary disease) ICD Codes: J44.9 - Chronic obstructive pulmonary disease, unspecified Status: Chronic Plan: Bronchodilators, Maintain saturations, Nicotine patch (5) Hypertension ICD Codes: I10 - Hypertension Status: Chronic Plan: cont home medications, monitor (6) GERD (gastroesophageal reflux disease) ICD Codes: K21.9 - Gastroesophageal reflux disease Status: Acute Plan: PPI Assessment and Plan 01/29/18- Cardiology consulted for bradycardia, Troponin negative x 1, cont on tele. 01/30/18- Afebrile, HR still running low. Seen by cardiology, Echo to be done. renal functions improved. Will dc IVF. Labs unremarkable.Urine culture still pending. Likely DC back to [place] in am once cleared by cardiology. 01/30/18- Blood cultures positive, urine grew Ecoli, sensitive to Ceftipime, will cont. ID consulted for BC. She has been afebrile. BP elevated will add lisinopril She has been cleared by cardiology. Head CT done last night for episode of confusion and weakness. No acute findings. Will wait for ID rec's She is refusing her medications, she want's to go back to [facility] ARNP Jan 31, 2018 09:03
[2018-01-31] MEDS ORDERED: cloNIDine HCL 0.1 MG TAB PO PRN (12:00)
[2018-01-31] MEDS ORDERED: LORazepam 2 MG/ML VIAL ONE (15:15)
--- NOTE | 2018-01-31 15:38 | RADRPT ---
EXAM DATE: 01/31/2018 3:29 PM EDT AGE/SEX: 62 years / Female INDICATIONS: Stroke alert, increased altered mental status, lower extremity numbness and head ache CLINICAL DATA: This is the patient's initial encounter. Patient reports that signs and symptoms have been present for 1 day and indicates a pain score of Nonresponsive. MEDICAL/SURGICAL HISTORY: Cardiovascular disease. Hypertension. None. RADIATION DOSE: 56.35 CTDI (mGy) COMPARISON: [facility] [place], CT BRAIN W/O CONTRAST, 01/29/2018. . TECHNIQUE: CT of the head without contrast. Using automated exposure control and adjustment of the mA and/or kV according to patient size, radiation dose was kept as low as reasonably achievable to ob tain optimal diagnostic quality images. FINDINGS: There is no evidence for intracranial hemorrhage, mass effect, mass lesions, or edema. The visualize d bony structures appear intact. Mild degree of brain atrophy is seen. Mild periventricular white mat ter changes are seen mainly in the right frontoparietal junction nonspecific mostly consistent with c hronic small vessel ischemic changes. There are no signs of acute infarction for technique. CONCLUSION: Chronic small vessel ischemic and atrophic changes and not significantly changed. Findin gs were reported to Dr. Tristian Pompa by myself at 15:34 hours. Electronically signed by: Marie Farmer MD 01/31/2018 3:36 PM EDT
[2018-01-31] MEDS ORDERED: LORazepam 2 MG/ML VIAL IV PUSH ONE (15:45)
--- NOTE | 2018-01-31 15:59 | MB ---
cc: Tristian Pompa MD, PhD DATE: 01/31/2018 REASON FOR CONSULTATION: Stroke Alert. HISTORY OF PRESENT ILLNESS: Ms. Bray is a 62-year-old female who was brought from the [facility] with symptoms of confusion, mental status changes, found to have pneumonia and urinary tract infection. She was communicative and stable until about 20 minutes ago, at about 3 o'clock was noted to have sudden change in mental status, becoming unresponsive with eyes deviating to the right side. PAST MEDICAL HISTORY: She has history of previous stroke, hypertension, anxiety, degenerative arthritis, COPD, GERD, sinus bradycardia, COPD, GE reflux. CURRENT MEDICATIONS: 1. Clonidine p.r.n. 2. Lisinopril 10 mg daily. 3. Prednisone 20 mg b.i.d. 4. Trazodone. 5. Cefepime. 6. Aspirin 81 mg daily. 7. Cholecalciferol. 8. Klonopin 0.5 mg q.i.d. 9. Inderal 10 mg b.i.d. 10. Zanaflex 2 mg t.i.d. 11. Lovenox 30 mg q. 24 hours subcutaneous. 12. Pulmicort. 13. Magnesium hydroxide. 14. Dulcolax. 15. Lactulose. PHYSICAL EXAMINATION: VITAL SIGNS: Blood pressure is 176/112, pulse 116, respirations 20, temperature 97.5 degrees. NEUROLOGICAL EXAMINATION: Higher Cortical Functions: The patient is nonresponsive. I cannot have her follow commands, even simple commands. She has no speech output. She has twitching activity of the head to the right side. Eyes are deviated to the right. She has posturing of the right upper extremity with what appears to be tonic-clonic type activity in the right upper extremity only. Reflexes are symmetric. IMAGING STUDIES: The patient had a CT scan of the brain done yesterday and the day before, both of which were within normal limits. Stroke Alert CT is currently pending. LABORATORY DATA: The sodium is 143, potassium 4.2, chloride 107, CO2 29.1. The BUN is 17, creatinine 0.6, GFR is 102, glucose is 83, AST is 16, ALT 30. These are labs from yesterday. Current laboratories are pending. PT from 01/28/2018 is 9.8, INR 1, aPTT 21.4. Tox screen negative. Urinalysis: pH 6.5, specific gravity 1.015, 3 WBCs are identified. IMPRESSION: The clinical exam of the patient at this time appears to be predominantly consistent with a seizure focus in left hemisphere. Stroke is also a possibility, but I think seizure more likely. RECOMMENDATIONS: We will proceed with a CT of the brain, as well as a CT angiogram of the head and neck emergently per the Stroke Alert protocol. We will also follow up on the labs obtained today. The patient will be given Ativan. Further recommendations will ensue after the results of the CT and CT angiogram. Tristian Pompa MD, PhD TSERING/ASHER , 03:25 PM , 03:58 PM
[2018-01-31] MEDS ORDERED: LORazepam 2 MG/ML VIAL IV PUSH PRN (16:00)
[2018-01-31 16:02] LABS: AUTOMATED NEUTROPHIL # 10.3 TH/MM3 (1.8-7.7); BASOPHIL % 0.4 % (0.0-2.0); EOSINOPHIL % 0.1 % (0.0-4.0); HEMATOCRIT 47.8 % (35.0-46.0); HEMOGLOBIN 16.2 GM/DL (11.6-15.3); LYMPH % 13.1 % (9.0-44.0); LYMPHOCYTE # 1.6 TH/MM3 (1.0-4.8); MEAN CELL VOLUME 92.8 FL (80.0-100.0); MEAN CORPUSCULAR HEMOGLOBIN 31.5 PG (27.0-34.0); MEAN CORPUSCULAR HGB CONC 33.9 % (32.0-36.0); MEAN PLATELET VOLUME 8.2 FL (7.0-11.0); MONO % 4.5 % (0.0-8.0); MONOCYTE # 0.6 TH/MM3 (0-0.9); NEUT % 81.9 % (16.0-70.0); PLATELET COUNT 364 TH/MM3 (150-450); RED BLOOD COUNT 5.15 MIL/MM3 (4.00-5.30); WHITE BLOOD COUNT 12.5 TH/MM3 (4.0-11.0)
--- NOTE | 2018-01-31 16:06 | PD.ID.CON ---
History of Present Illness Service ID Consult Requested By Dr Palomino Reason for Consult positive blood cultures Primary Care Physician Harvinder Quick MD Diagnoses: History of Present Illness Pt is unable to provide me her history HIstory per chart The patient is a 62 year old female came to emergency department for altered mentation and reportedly feeling unwell in general that began in the afternoon today. The patient is a resident at [facility]. She is normally on 3 L nasal cannula O2 continuously related to a history of COPD. The patient continues to smoke 1 pack of cigarettes per day. Her CXR showed RLL infiltrate and Her UA was positive nitritte and urine clx has E.coli she was diagnosed with UTI Her cultures are positive for coag negative staph, diffeent morphologies Today pt is with decreased responsiveness She ia ubale ot provide any reliable history HER BP is high, Halicat was called Repeat UA is negative today Mild leukocytosis 12.5 K ilene pt h Review of Systems ROS Limitations: Altered Mental Status Past Family Social History Allergies: Coded Allergies: No Known Allergies (Verified Allergy, Unknown, 01/29/18) Past Medical History CVA, hypertension, anxiety, arthritis, COPD, gastroesophageal reflux disease. Past Surgical History R ankle ORIF Active Ordered Medications Medications where reviewed in EMR Antibiotics Include: cefepime Family History Non contributory to current ID issues Social History The patient smokes 1 pack a day. She denies alcohol. No drugs Physical Exam Vital Signs Vital Signs Date Time Temp Pulse Resp B/P (MAP) Pulse Ox O2 Delivery O2 Flow Rate FiO2 01/31/18 15:00 93 2.00 01/31/18 14:25 176/112 (133) 01/31/18 12:21 97.5 116 20 162/108 (126) 94 01/31/18 11:26 162/104 (123) 01/31/18 10:52 148/96 (113) 01/31/18 08:30 110 01/31/18 08:23 92 Nasal Cannula 2.00 01/31/18 08:02 98.2 117 20 160/107 (124) 97 01/31/18 05:45 98.0 119 20 187/98 (127) 98 01/31/18 00:30 98.0 80 19 148/69 (95) 98 01/30/18 20:45 97.7 84 19 150/72 (98) 97 01/30/18 17:21 74 6/7/18 16:49 98.1 83 20 142/84 (103) 97 Physical Exam CONSTITUTIONAL/GENERAL: This is an adequately nourished patient, in no apparent distress. TUBES/LINES/DRAINS: SKIN: No jaundice, rashes, or lesions. Skin temperature appropriate. Not diaphoretic. HEAD: Atraumatic. Normocephalic. EYES: Pupils equal and round and reactive. Extraocular motions intact. No scleral icterus. No injection or drainage. Fundi not examined. ENT: Hearing grossly normal. Nose without bleeding or purulent drainage. Throat without visible erythema, exudates, masses, or lesions. NECK: Trachea midline. Supple, nontender. No palpable thyroid enlargement or nodularity. CARDIOVASCULAR: Regular rate and rhythm without murmurs, gallops, or rubs. No JVD. Peripheral pulses symmetric. RESPIRATORY/CHEST: Symmetric, unlabored respirations. Clear to auscultation. Breath sounds equal bilaterally. No wheezes, rales, or rhonchi. GASTROINTESTINAL: Abdomen soft, non-tender, nondistended. No hepato-splenomegaly , or palpable masses. No guarding. Bowel sounds present. GENITOURINARY: Without palpable bladder distension. Rose catheter in place. MUSCULOSKELETAL: Extremities without clubbing, + cyanosis, + 1 edema. No joint tenderness or effusion noted. No calf tenderness. No mottling or clubbing. LYMPHATICS: No palpable cervical or supraclavicular adenopathy. NEUROLOGICAL: Lethargic, but arousable. Not follows commands. Does not maintain conversation, just nodes occasionally Tremor noted RUE . Moves all extremities. PSYCHIATRIC: No obvious anxiety/depression. no apparent hallucinations or other psychotic thought process. Laboratory Laboratory Tests Test 01/31/18 15:05 01/31/18 15:32 Blood Gas Puncture Site LT RADIAL Blood Gas Patient Temperature 98.6 Blood Gas HCO3 26 Blood Gas Base Excess 2.9 Blood Gas Oxygen Saturation 93 Arterial Blood pH 7.46 Arterial Blood Partial Pressure CO2 37 Arterial Blood Partial Pressure O2 73 Arterial Blood Oxygen Content 22.0 Arterial Blood Carboxyhemoglobin 1.0 Arterial Blood Methemoglobin 1.0 Blood Gas Hemoglobin 16.7 Oxygen Delivery Device NASAL CANNULA Blood Gas Liter Flow 2 Bedside Hemoglobin 16.0 Bedside Hematocrit 47.0 Bedside Sodium 139 Bedside Potassium 4.2 Bedside Chloride 105 Bedside Blood Urea Nitrogen 9 Bedside Creatinine 0.4 Bedside Glucose 118 Date/Time Source Procedure Growth Status 01/28/18 23:40 Blood Peripheral Aerobic Blood Culture - Final Staph Sp Coagulase Negative Complete 01/28/18 23:40 Anaerobic Blood Culture - Final Staph Sp Coagulase Negative Complete 01/28/18 23:30 Urine Random Urine Urine Culture - Final Escherichia Coli Complete Result Diagram: 01/30/18 0635 01/30/18 0635 Imaging Last Impressions Head Magnetic Resonance Angiography 01/31/18 0000 Signed Impressions: CONCLUSION: Atherosclerotic disease of multiple branches bilaterally. Head CT 01/31/18 0000 Signed Impressions: CONCLUSION: Chronic small vessel ischemic and atrophic changes and not signifi cantly changed. Findings were reported to Dr. Tristian Pompa by myself at 15:34 ho urs. Chest X-Ray 01/31/18 Signed Impressions: CONCLUSION: Mild bibasilar areas of atelectasis or consolidation. Brain MRI 01/31/18 Signed Impressions: CONCLUSION: Chronic small vessel ischemic and atrophic changes. Assessment and Plan Assessment and Plan UTI Kleb pneumo RLL PNA Coag neg staph bactremia, favouring contamination dw microlab: different morphologies [place] clincially today will repeat BC change cefpeime to CFTX will repeat CXR Discussed Condition With Hallie Porter MD Jan 31, 2018 16:06
[2018-01-31 16:21] LABS: PROTHROMBIN TIME - PATIENT 10.2 SEC (9.8-11.6)
[2018-01-31] MEDS ORDERED: FOSPHENYTOIN INJ 1,000 MGPE in SODIUM CHLORIDE 0.9% INJ 50 ML IV ONE (16:30)
--- NOTE | 2018-01-31 16:38 | RADRPT ---
EXAM DATE: 01/31/2018 4:27 PM EDT AGE/SEX: 62 years / Female INDICATIONS: Stroke alert. CLINICAL DATA: This is the patient's initial encounter. Patient reports that signs and symptoms have been present for 1 day and indicates a pain score of Nonresponsive. MEDICAL/SURGICAL HISTORY: Cerebrovascular disease. Hypertension. Gerd. Non-responsive. [place] [facility] [place]/2018. . TECHNIQUE: Multiplanar, multisequence examination of the brain was performed without contrast. FINDINGS: There is no evidence for intracranial hemorrhage, mass effect, mass lesions, edema, or extra-axial fl uid collections. There are no signs of acute infarction for technique. The diffusion portion is unr emarkable. Slight degree of brain atrophy is seen. Slight periventricular white matter changes are se en nonspecific mostly consistent with chronic small vessel ischemic changes extending into the maria t. CONCLUSION: Chronic small vessel ischemic and atrophic changes. Electronically signed by: Marie Farmer MD 01/31/2018 4:36 PM EDT
[2018-01-31] MEDS ORDERED: hydrALAZINE HCL 50 MG TAB PO PRN (16:45)
--- NOTE | 2018-01-31 16:45 | RADRPT ---
EXAM DATE: 01/31/2018 4:36 PM EDT AGE/SEX: 62 years / Female INDICATIONS: Stroke alert. CLINICAL DATA: This is the patient's initial encounter. Patient reports that signs and symptoms have been present for 1 day and indicates a pain score of Nonresponsive. MEDICAL/SURGICAL HISTORY: Hypertension. Cerebrovascular disease. Gerd. Non-responsive. COMPARISON: No prior exams available for comparison. TECHNIQUE: 3D [id number] MRA was performed. Source images, multiplanar STS MIP, and 3D volum e MIP reconstructions were reviewed. FINDINGS: There is atherosclerotic disease involving multiple branches bilaterally. No definite filling defects or vessel truncation is identified. CONCLUSION: Atherosclerotic disease of multiple branches bilaterally. Electronically signed by: Marie Farmer MD 01/31/2018 4:44 PM EDT
--- NOTE | 2018-01-31 16:46 | PD.CONS ---
HPI Service Critical Care Medicine Consult Requested By Dr. Palomino Reason for Consult altered mental status Primary Care Physician Harvinder Quick MD History of Present Illness This is a 62yM who presents with altered mental status, UTI, and hypertension. rapid response was called for acute altered mentation with shaking-like episodes of the bilateral upper extremities. CT head negative for acute hemorrhage. MRI negative for diffusion restriction. Patient has also been intermittently refusing anti-hypertensive medications. for me, patient answers some questions, but not enough to obtain a full history. denies chest pain or SOB, but otherwise does not participate in a history. vigorously protects airway. Review of Systems ROS Limitations: Clinical Condition, Altered Mental Status Past Family Social History Allergies: Coded Allergies: No Known Allergies (Verified Allergy, Unknown, 01/29/18) Past Medical History CVA HTN Anxiety DDD Arthritis COPD GERD Past Surgical History unknown and unobtainable secondary to the clinical condition of the patient Reported Medications Tylenol (Acetaminophen) 325 Mg Tab 325 Mg PO ONCE Aleve Arthritis (Naproxen Sodium) 220 Mg Tab 220 Mg PO BID Aspirin 81 Mg Chew 81 Mg CHEW DAILY Vitamin D-1000 (Cholecalciferol) 1,000 Unit Tab 5,000 Units PO DAILY Trazodone (Trazodone HCl) 50 Mg Tab 75 Mg PO HS Tizanidine (Tizanidine HCl) 2 Mg Tab 2 Mg PO TID Ranitidine (Ranitidine HCl) 150 Mg Tab 150 Mg PO BID Propranolol (Propranolol HCl) 10 Mg Tab 10 Mg PO Q12HR Nicotine Patch (Nicotine) 14 Mg/24 Hr Patch 14 Mg T-DERMAL DAILY Klonopin (Clonazepam) 0.5 Mg Tab 0.5 Mg PO QID Gabapentin 600 Mg Tab 600 Mg PO TID Ferrous Sulfate 325 Mg (65 Mg Iron) Tablet 325 Mg PO DAILY Docusate Sodium-Senna (Sennosides-Docusate Sodium) 8.6-50 Mg Tab 1 Tab PO HS Nuedexta 20-10 mg (Dextromethorphan HBr-Quinidine) 20 Mg-10 Mg Cap 1 Cap PO DAILY Budesonide Neb 0.5 Mg/2 Ml Neb 0.5 Mg NEB DAILY NEB Active Ordered Medications See MAR Family History unknown and unobtainable secondary to the clinical condition of the patient Social History 1 pck day smoker quit Denies ETOH Physical Exam Vital Signs Vital Signs Date Time Temp Pulse Resp B/P (MAP) Pulse Ox O2 Delivery O2 Flow Rate FiO2 01/31/18 15:00 93 2.00 01/31/18 14:25 176/112 (133) 01/31/18 12:21 97.5 116 20 162/108 (126) 94 01/31/18 11:26 162/104 (123) 01/31/18 10:52 148/96 (113) 01/31/18 08:30 110 01/31/18 08:23 92 Nasal Cannula 2.00 01/31/18 08:02 98.2 117 20 160/107 (124) 97 01/31/18 05:45 98.0 119 20 187/98 (127) 98 01/31/18 00:30 98.0 80 19 148/69 (95) 98 01/30/18 20:45 97.7 84 19 150/72 (98) 97 01/30/18 17:21 74 01/30/18 16:49 98.1 83 20 142/84 (103) 97 Physical Exam gen: middle-aged female who appears much older than stated age, lying in bed, awake but altered heent: nc. at. pupils 3mm, bilaterally equal and reactive, conjugate. mucous membranes moist. neck: no jvd. trachea midline. chest: equal chest rise. nc o2. cv: normal rate, regular rhythm. sinus. abd: soft, nontender, nondistended. no guarding. extr: no peripheral edema. distal pulses 2+. neuro: RASS -1. follows commands x 4. appears to have preserved PASHA x 4. intermittently follows commands, answers simple questions. Laboratory Laboratory Tests Test 01/31/18 15:05 01/31/18 15:32 Blood Gas Puncture Site LT RADIAL Blood Gas Patient Temperature 98.6 Blood Gas HCO3 26 Blood Gas Base Excess 2.9 Blood Gas Oxygen Saturation 93 Arterial Blood pH 7.46 Arterial Blood Partial Pressure CO2 37 Arterial Blood Partial Pressure O2 73 Arterial Blood Oxygen Content 22.0 Arterial Blood Carboxyhemoglobin 1.0 Arterial Blood Methemoglobin 1.0 Blood Gas Hemoglobin 16.7 Oxygen Delivery Device NASAL CANNULA Blood Gas Liter Flow 2 White Blood Count 12.5 Red Blood Count 5.15 Hemoglobin 16.2 Bedside Hemoglobin 16.0 Hematocrit 47.8 Bedside Hematocrit 47.0 Mean Corpuscular Volume 92.8 Mean Corpuscular Hemoglobin 31.5 Mean Corpuscular Hemoglobin Concent 33.9 Red Cell Distribution Width 13.0 Platelet Count 364 Mean Platelet Volume 8.2 Neutrophils (%) (Auto) 81.9 Lymphocytes (%) (Auto) 13.1 Monocytes (%) (Auto) 4.5 Eosinophils (%) (Auto) 0.1 Basophils (%) (Auto) 0.4 Neutrophils # (Auto) 10.3 Lymphocytes # (Auto) 1.6 Monocytes # (Auto) 0.6 Eosinophils # (Auto) 0.0 Basophils # (Auto) 0.0 CBC Comment DIFF FINAL Differential Comment Prothrombin Time 10.2 Prothromb Time International Ratio 1.0 Activated Partial Thromboplast Time 26.4 Fibrinogen 607 Bedside Sodium 139 Bedside Potassium 4.2 Bedside Chloride 105 Bedside Blood Urea Nitrogen 9 Bedside Creatinine 0.4 Bedside Glucose 118 Date/Time Source Procedure Growth Status 01/28/18 23:40 Blood Peripheral Aerobic Blood Culture - Final Staph Sp Coagulase Negative Complete 01/28/18 23:40 Anaerobic Blood Culture - Final Staph Sp Coagulase Negative Complete 01/28/18 23:30 Urine Random Urine Urine Culture - Final Escherichia Coli Complete Result Diagram: 01/31/18 1532 01/30/18 0635 Imaging Last Impressions Head Magnetic Resonance Angiography 01/31/18 0000 Signed Impressions: CONCLUSION: Atherosclerotic disease of multiple branches bilaterally. Head CT 01/31/18 0000 Signed Impressions: CONCLUSION: Chronic small vessel ischemic and atrophic changes and not signifi cantly changed. Findings were reported to Dr. Tristian Pompa by myself at 15:34 ho urs. Brain MRI 01/31/18 0000 Signed Impressions: CONCLUSION: Chronic small vessel ischemic and atrophic changes. Chest X-Ray 01/28/18 2333 Signed Impressions: CONCLUSION: 1. Patchy infiltrate right lower lung. 2. Mild pulmonary venous congestion. Assessment and Plan Assessment and Plan Assessment: 62yF with new acute encephalopathy which appears metabolic in origin , course complicated by UTI and bacteremia. Agree with antibiotics. will repeat blood cultures. acute encephalopathy appears to be primarily metabolic. no evidence for acute ischemia. PRES certainly would be in the differential given her poorly controlled hypertension, but no findings to suggest this on MRI. will increase anti-hypertensive regimen and have asked the patient to take medications as we prescribe. Seizures are also in the differential and she is actively getting a bedside EEG. For now, I believe the patient is hemodynamically stable, protecting her airway, and there is not a current need to transfer to intensive care. Acute metabolic encephalopathy - EEG currently being performed - MRI negative - CT head negative (x 3, 3 days in a row) - likely metabolic from sepsis - agree with neurology consultation Bacteremia UTI Sepsis- present on admission, secondary to bacteremia/UTI - repeat blood cultures - agree with cefepime, though would de-escalate therapy based on c/s. - agree with ID consultation Hypertensive urgency - add labetalol 200mg po q8h - add hydralazine 50mg po q8h prn for SBP > 160 - prn clonidine - keep on telemetry - encouraged patient not to refuse medications Critical care medicine will sign off. please re-consult as needed. Jhonny Salmeron MD Jan 31, 2018 16:46
[2018-01-31 16:50] LABS: TROPONIN I 0.06 NG/ML (0.02-0.05)
--- NOTE | 2018-01-31 16:53 | PD.CARD.PN ---
Subjective Subjective Remarks Poorly responsive this PM, mild ST, EEG in progress Objective Medications Current Medications Medications (Trade) Dose Ordered Sig/Tim Route Start Time Stop Time Status Last Admin (Aspirin Chew) 81 mg DAILY CHEW 01/29/18 09:00 01/31/18 09:00 (Pulmicort Respule Neb) 0.5 mg DAILY NEB NEB 01/29/18 08:00 01/31/18 08:19 (Vitamin D3) 5,000 units DAILY PO 01/29/18 09:00 01/31/18 09:00 (KlonoPIN) 0.5 mg QID PO 01/29/18 09:00 01/31/18 12:30 (Inderal) 10 mg Q12HR PO 01/29/18 09:00 Future Hold 01/31/18 08:59 (Madeleine-Colace) 1 tab HS PO 01/29/18 21:00 01/29/18 21:15 (Zanaflex) 2 mg TID PO 01/29/18 09:00 01/31/18 12:30 (Desyrel) 75 mg HS PO 01/29/18 21:00 01/30/18 20:47 Patient Own Medication PT OWN MED: (Dextromethorphan HBr-Quinid... DAILY PO 01/29/18 09:00 Future Hold (Pill Splitter) 1 ea UNSCH PRN OTHER 01/29/18 05:30 Cefepime HCl 2000 mg/Sodium Chloride 100 ml @ 200 mls/hr Q12H IV 01/29/18 14:00 01/31/18 02:00 (NS Flush) 2 ml UNSCH PRN IV FLUSH 01/29/18 05:30 01/30/18 20:49 (NS Flush) 2 ml BID IV FLUSH 01/29/18 09:00 01/30/18 20:49 (Lovenox Inj) 30 mg Q24H SQ 01/29/18 09:00 01/30/18 08:41 (Narcan Inj) 0.4 mg UNSCH PRN IV PUSH 01/29/18 05:30 (Madeleine-Colace) 1 tab BID PO 01/29/18 09:00 01/31/18 09:00 (Milk Of Magnesia Liq) 30 ml Q12H PRN PO 01/29/18 05:30 (Senokot) 17.2 mg Q12H PRN PO 01/29/18 05:30 (Dulcolax Supp) 10 mg DAILY PRN RECTAL 01/29/18 05:30 (Lactulose Liq) 30 ml DAILY PRN PO 01/29/18 05:30 (Habitrol 21 Mg Patch.24 Hr) 1 patch DAILY T-DERMAL 01/30/18 09:00 01/30/18 08:40 Miscellaneous Information 1 DAILY T-DERMAL 01/31/18 09:00 (Deltasone) 20 mg BID PO 01/30/18 21:00 01/31/18 09:00 Dextrose/Sodium Chloride 1,000 ml @ 75 mls/hr [id number] IV 01/30/18 18:30 01/31/18 08:55 (Prinivil) 10 mg DAILY PO 01/31/18 09:00 01/31/18 09:01 (Catapres) 0.1 mg Q6H PRN PO 01/31/18 12:00 01/31/18 12:30 (Cerebyx Inj) 100 mgpe Q8HR IV 01/31/18 22:00 (Ativan Inj) 1 mg Q4H PRN IV PUSH 01/31/18 16:00 (Trandate) 200 mg Q8H PO 01/31/18 16:45 UNV (Apresoline) 50 mg Q8HR PRN PO 01/31/18 16:45 UNV Vital Signs / I&O Vital Signs Date Time Temp Pulse Resp B/P (MAP) Pulse Ox O2 Delivery O2 Flow Rate FiO2 01/31/18 15:00 93 2.00 01/31/18 14:25 176/112 (133) 01/31/18 12:21 97.5 116 20 162/108 (126) 94 01/31/18 11:26 162/104 (123) 01/31/18 10:52 148/96 (113) 01/31/18 08:30 110 01/31/18 08:23 92 Nasal Cannula 2.00 01/31/18 08:02 98.2 117 20 160/107 (124) 97 01/31/18 05:45 98.0 119 20 187/98 (127) 98 01/31/18 00:30 98.0 80 19 148/69 (95) 98 01/30/18 20:45 97.7 84 19 150/72 (98) 97 01/30/18 17:21 74 01/30/18 16:49 98.1 83 20 142/84 (103) 97 I/O 01/30/18 01/30/18 01/30/18 01/31/18 01/31/18 01/31/18 07:00 15:00 23:00 07:00 15:00 23:00 Intake Total 1770 ml 550 ml 1000 ml Output Total 1525 ml 1200 ml 1000 ml Balance 245 ml -650 ml 0 ml Intake Oral 1170 ml 550 ml IV Total 600 ml 1000 ml Output Urine Total 1525 ml 1200 ml 1000 ml # Voids 4 3 # Bowel Movements 1 0 0 Physical Exam GENERAL: Poorly responsive, shaking SKIN: Warm and dry. HEAD: Normocephalic. EYES: No scleral icterus. No injection or drainage. NECK: Supple, trachea midline. No JVD or lymphadenopathy. CARDIOVASCULAR: Regular rate and rhythm, mild tachycardia, without murmurs, gallops, or rubs. RESPIRATORY: Breath sounds equal bilaterally. No accessory muscle use. GASTROINTESTINAL: Abdomen soft, non-tender, nondistended. Laboratory Laboratory Tests Test 01/31/18 15:05 01/31/18 15:32 Blood Gas Puncture Site LT RADIAL Blood Gas Patient Temperature 98.6 Blood Gas HCO3 26 mmol/L Blood Gas Base Excess 2.9 mmol/L Blood Gas Oxygen Saturation 93 % Arterial Blood pH 7.46 Arterial Blood Partial Pressure CO2 37 mmHg Arterial Blood Partial Pressure O2 73 mmHg Arterial Blood Oxygen Content 22.0 Vol % Arterial Blood Carboxyhemoglobin 1.0 % Arterial Blood Methemoglobin 1.0 % Blood Gas Hemoglobin 16.7 G/DL Oxygen Delivery Device NASAL CANNULA Blood Gas Liter Flow 2 L/M White Blood Count 12.5 TH/MM3 Red Blood Count 5.15 MIL/MM3 Hemoglobin 16.2 GM/DL Bedside Hemoglobin 16.0 G/DL Hematocrit 47.8 % Bedside Hematocrit 47.0 % Mean Corpuscular Volume 92.8 FL Mean Corpuscular Hemoglobin 31.5 PG Mean Corpuscular Hemoglobin Concent 33.9 % Red Cell Distribution Width 13.0 % Platelet Count 364 TH/MM3 Mean Platelet Volume 8.2 FL Neutrophils (%) (Auto) 81.9 % Lymphocytes (%) (Auto) 13.1 % Monocytes (%) (Auto) 4.5 % Eosinophils (%) (Auto) 0.1 % Basophils (%) (Auto) 0.4 % Neutrophils # (Auto) 10.3 TH/MM3 Lymphocytes # (Auto) 1.6 TH/MM3 Monocytes # (Auto) 0.6 TH/MM3 Eosinophils # (Auto) 0.0 TH/MM3 Basophils # (Auto) 0.0 TH/MM3 CBC Comment DIFF FINAL Differential Comment Prothrombin Time 10.2 SEC Prothromb Time International Ratio 1.0 RATIO Activated Partial Thromboplast Time 26.4 SEC Fibrinogen 607 mg/dL Bedside Sodium 139 MMOL/L Bedside Potassium 4.2 MMOL/L Bedside Chloride 105 MMOL/L Bedside Blood Urea Nitrogen 9 MG/DL Bedside Creatinine 0.4 MG/DL Bedside Glucose 118 MG/DL Imaging Last 24 hours Impressions Head Magnetic Resonance Angiography 01/31/18 Impressions: CONCLUSION: Atherosclerotic disease of multiple branches bilaterally. Head CT 01/31/18 Signed Impressions: CONCLUSION: Chronic small vessel ischemic and atrophic changes and not signifi cantly changed. Findings were reported to Dr. Tristian Pompa by myself at 15:34 ho urs. Brain MRI 01/31/18 Signed Impressions: CONCLUSION: Chronic small vessel ischemic and atrophic changes. Assessment and Plan Problem List: (1) Altered mental status ICD Codes: R41.82 - Altered mental status, unspecified (2) Sinus tachycardia ICD Codes: R00.0 - Tachycardia, unspecified (3) Sinus bradycardia ICD Codes: R00.1 - Bradycardia, unspecified (4) Hypertension ICD Codes: I10 - Hypertension Status: Chronic (5) PNA (pneumonia) ICD Codes: J18.9 - Pneumonia, unspecified organism (6) UTI (urinary tract infection) ICD Codes: N39.0 - Urinary tract infection Status: Acute (7) Tobacco abuse ICD Codes: Z72.0 - Tobacco abuse Status: Chronic Assessment and Plan Tele with mild sinus tachycardia. Mental status change this PM, neurology eval in progress. Brain CT relatively unremarkable. Continue current program including tx for PNA and UTI, ID eval in progress. Continue monitoring on tele. Odilia Villalta MD Jan 31, 2018 16:53
--- NOTE | 2018-01-31 16:57 | MB ---
cc: Tristian Pompa MD, PhD Tristian Pompa MD PhD DATE: 01/31/2018 ADDENDUM: Since the original dictation, the patient has had a noncontrast head CT which is normal. CT angiography was not able to be completed due to lack of IV access. MRI of the brain without contrast is normal. The patient is showing signs of recovery of her symptoms. I feel the most likely etiology of the event was a focal seizure with no evidence of stroke on the MRI. Therefore, the patient is not a candidate for TPA. We will load the patient with Cerebyx 1000 mg IV and continue a maintenance Cerebyx 100 mg IV every 8 hours. We will also obtain an EEG. Tristian Pompa MD, PhD TSERING/ , 04:39 PM , 04:56 PM
[2018-01-31] MEDS: LABETALOL HCL 200 MG TAB PO SCH (17:16)
--- NOTE | 2018-01-31 18:19 | RADRPT ---
EXAM DATE: 01/31/2018 5:59 PM EDT AGE/SEX: 62 years / Female INDICATIONS: Short of breath. CLINICAL DATA: This is the patient's subsequent encounter. Patient reports that signs and symptoms h ave been present for 1 day and indicates a pain score of 0/10. MEDICAL/SURGICAL HISTORY: . Hypertension. Cerebrovascular disease. Gerd None. [place] [facility] [place]. . FINDINGS: The heart size is normal. There is increased density at the medial right base. There are some minimal increased density at the left infrahilar region. The costophrenic angles are clear. Significant effu sions are not seen. CONCLUSION: Mild bibasilar areas of atelectasis or consolidation. Electronically signed by: Geovany Guillen MD 01/31/2018 6:17 PM EDT
[2018-01-31 19:50] LABS: BILIRUBIN, URINE NEG (NEG); BLOOD, URINE NEG (NEG); GLUCOSE,URINE NEG (NEG); HYALINE CAST, URINE 2 /lpf (RARE); KETONE, URINE NEG (NEG); NITRITE,URINE NEG (NEG); URINE COLOR YELLOW (YELLW/STRAW); URINE LEUKOCYTE ESTERASE NEG (NEG)
[2018-01-31] MEDS: FOSPHENYTOIN SODIUM 100 MG PE/2 ML VIAL IV SCH (21:16)
[2018-01-31] MEDS: cefTRIAXone INJ 2,000 MG in SODIUM CHLORIDE 0.9% INJ 100 ML IV SCH (21:16)
[2018-01-31] MEDS: traZODone HCL 50 MG TAB PO SCH (21:20)
[2018-01-31] MEDS: SODIUM CHLORIDE 0.9% FLUSH 10 ML FLUSH IV FLUSH PRN (21:20)
[2018-02-01] VITALS (12 sets, daily range): BP systolic 118–154; BP diastolic 59–73; PULSE 75–105; RESP 18–19; TEMP 97.5–98.8; O2SAT 94–98
[2018-02-01] MEDS: LABETALOL HCL 200 MG TAB PO SCH ×3 (01:00→16:30)
[2018-02-01] MEDS: SODIUM CHLORIDE 0.9% FLUSH 10 ML FLUSH IV FLUSH PRN ×2 (05:34→15:22)
[2018-02-01] MEDS: FOSPHENYTOIN SODIUM 100 MG PE/2 ML VIAL IV SCH ×2 (05:34→12:53)
[2018-02-01 05:40] LABS: HEMATOCRIT 41.6 % (35.0-46.0); HEMOGLOBIN 14.2 GM/DL (11.6-15.3); MEAN CELL VOLUME 92.3 FL (80.0-100.0); MEAN CORPUSCULAR HEMOGLOBIN 31.5 PG (27.0-34.0); MEAN CORPUSCULAR HGB CONC 34.1 % (32.0-36.0); MEAN PLATELET VOLUME 8.5 FL (7.0-11.0); PLATELET COUNT 345 TH/MM3 (150-450); RED BLOOD COUNT 4.51 MIL/MM3 (4.00-5.30); WHITE BLOOD COUNT 12.4 TH/MM3 (4.0-11.0)
[2018-02-01 05:52] LABS: BICARBONATE 22.3 MEQ/L (21.0-32.0); CALCIUM 9.1 MG/DL (8.5-10.1); CREATININE 0.62 MG/DL (0.50-1.00)
[2018-02-01 05:54] LABS: PHENYTOIN (DILANTIN) 13.9 MCG/ML (10.0-20.0)
[2018-02-01] MEDS: SODIUM CHLORIDE 0.9% FLUSH 10 ML FLUSH IV FLUSH SCH ×2 (07:25→22:13)
[2018-02-01] MEDS: DOCUSATE SODIUM 50 MG/SENNA 8.6 MG TAB PO SCH ×2 (07:57→22:12)
[2018-02-01] MEDS: ASPIRIN 81 MG CHEW TAB CHEW SCH (07:57)
[2018-02-01] MEDS: LISINOPRIL 10 MG TAB PO SCH (07:57)
[2018-02-01] MEDS: predniSONE 20 MG TAB PO SCH ×2 (07:57→22:12)
[2018-02-01] MEDS: clonazePAM 0.5 MG TAB PO SCH ×4 (07:58→22:12)
[2018-02-01] MEDS: CHOLECALCIFEROL (VIT D3) 5000 UNIT CAP PO SCH (07:58)
[2018-02-01] MEDS: NICOTINE 21 MG/24 HR PATCH T-DERMAL SCH (07:59)
[2018-02-01] MEDS: REMOVE OLD PATCH T-DERMAL SCH (08:00)
[2018-02-01] MEDS: ENOXAPARIN SODIUM 30 MG/0.3 ML SYRINGE SQ SCH (08:01)
[2018-02-01] MEDS: RESP: BUDESONIDE 0.5 MG/2 ML NEB NEB SCH (09:11)
[2018-02-01] MEDS: DEXT 5%-NACL 0.45% 1000 ML INJ 1,000 ML IV SCH ×2 (09:25→23:50)
--- NOTE | 2018-02-01 11:18 | HHI.PR ---
Subjective Remarks She is awake and alert this AM and has no complaints except she wants to know why we are taking care of her instead of Dr. Quick. Objective Vital Signs Date Time Temp Pulse Resp B/P (MAP) Pulse Ox O2 Delivery O2 Flow Rate FiO2 02/01/18 10:09 78 02/01/18 09:13 98 Nasal Cannula 2.00 02/01/18 08:41 98.0 77 18 128/59 (82) 94 Manual Cuff/Auscultation 02/01/18 05:00 98.8 79 18 118/64 (82) 94 02/01/18 00:30 98.7 80 19 120/69 (86) 96 01/31/18 20:00 98.0 70 19 104/57 (73) 95 01/31/18 18:04 93 Nasal Cannula 2.00 01/31/18 16:45 158/110 (126) 01/31/18 15:00 93 2.00 01/31/18 14:25 176/112 (133) 01/31/18 12:30 111 01/31/18 12:21 97.5 116 20 162/108 (126) 94 01/31/18 11:26 162/104 (123) I/O 01/31/18 01/31/18 01/31/18 02/01/18 02/01/18 02/01/18 07:00 15:00 23:00 07:00 15:00 23:00 Intake Total 550 ml 1000 ml 400 ml 250 ml Output Total 1200 ml 1000 ml Balance -650 ml 0 ml 400 ml 250 ml Intake Oral 550 ml 400 ml 250 ml IV Total 1000 ml Output Urine Total 1200 ml 1000 ml # Voids 3 2 8 1 # Bowel Movements 0 0 0 1 Result Diagram: 02/01/18 0500 02/01/18 0500 Imaging Last Impressions Head Magnetic Resonance Angiography 01/31/18 0000 Signed Impressions: CONCLUSION: Atherosclerotic disease of multiple branches bilaterally. Head CT 01/31/18 Signed Impressions: CONCLUSION: Chronic small vessel ischemic and atrophic changes and not signifi cantly changed. Findings were reported to Dr. Tristian Pompa by myself at 15:34 ho urs. Chest X-Ray 01/31/18 Signed Impressions: CONCLUSION: Mild bibasilar areas of atelectasis or consolidation. Brain MRI 6/8/18 0000 Signed Impressions: CONCLUSION: Chronic small vessel ischemic and atrophic changes. Objective Remarks GENERAL: Awake, alert and conversive SKIN: Warm and dry. HEAD: Normocephalic. EYES: No scleral icterus. No injection or drainage. NECK: Supple, trachea midline. No JVD or lymphadenopathy. CARDIOVASCULAR: Regular rate and rhythm without murmurs, gallops, or rubs. RESPIRATORY: Breath sounds equal bilaterally. No accessory muscle use. GASTROINTESTINAL: Abdomen soft, non-tender, nondistended. MUSCULOSKELETAL: No cyanosis, or edema. BACK: Nontender without obvious deformity. No CVA tenderness. Medications and IVs Current Medications Medications (Trade) Dose Ordered Sig/Tim Route Start Time Stop Time Status Last Admin (Aspirin Chew) 81 mg DAILY CHEW 01/29/18 09:00 02/01/18 07:57 (Pulmicort Respule Neb) 0.5 mg DAILY NEB NEB 01/29/18 08:00 02/01/18 09:11 (Vitamin D3) 5,000 units DAILY PO 01/29/18 09:00 02/01/18 07:58 (KlonoPIN) 0.5 mg QID PO 01/29/18 09:00 02/01/18 07:58 (Inderal) 10 mg Q12HR PO 01/29/18 09:00 Future Hold 01/31/18 08:59 (Zanaflex) 2 mg TID PO 01/29/18 09:00 02/01/18 07:57 (Desyrel) 75 mg HS PO 01/29/18 21:00 01/31/18 21:20 Patient Own Medication PT OWN MED: (Dextromethorphan HBr-Quinid... DAILY PO 01/29/18 09:00 Future Hold (Pill Splitter) 1 ea UNSCH PRN OTHER 01/29/18 05:30 (NS Flush) 2 ml UNSCH PRN IV FLUSH 01/29/18 05:30 02/01/18 05:34 (NS Flush) 2 ml BID IV FLUSH 01/29/18 09:00 01/31/18 21:20 (Lovenox Inj) 30 mg Q24H SQ 01/29/18 09:00 02/01/18 08:01 (Narcan Inj) 0.4 mg UNSCH PRN IV PUSH 01/29/18 05:30 (Madeleine-Colace) 1 tab BID PO 01/29/18 09:00 02/01/18 07:57 (Milk Of Magnesia Liq) 30 ml Q12H PRN PO 01/29/18 05:30 (Senokot) 17.2 mg Q12H PRN PO 01/29/18 05:30 (Dulcolax Supp) 10 mg DAILY PRN RECTAL 01/29/18 05:30 (Lactulose Liq) 30 ml DAILY PRN PO 01/29/18 05:30 (Habitrol 21 Mg Patch.24 Hr) 1 patch DAILY T-DERMAL 01/30/18 09:00 02/01/18 07:59 Miscellaneous Information 1 DAILY T-DERMAL 01/31/18 09:00 (Deltasone) 20 mg BID PO 01/30/18 21:00 02/01/18 07:57 Dextrose/Sodium Chloride 1,000 ml @ 75 mls/hr [id number] IV 01/30/18 18:30 01/31/18 21:15 (Prinivil) 10 mg DAILY PO 01/31/18 09:00 02/01/18 07:57 (Catapres) 0.1 mg Q6H PRN PO 01/31/18 12:00 01/31/18 12:30 (Cerebyx Inj) 100 mgpe Q8HR IV 01/31/18 22:00 02/01/18 05:34 (Ativan Inj) 1 mg Q4H PRN IV PUSH 01/31/18 16:00 (Trandate) 200 mg Q8H PO 01/31/18 17:00 02/01/18 07:58 (Apresoline) 50 mg Q8HR PRN PO 01/31/18 16:45 Ceftriaxone Sodium 2000 mg/ Sodium Chloride 100 ml @ 200 mls/hr Q24H IV 01/31/18 21:00 01/31/18 21:16 Assessment and Plan Problem List: (1) COPD (chronic obstructive pulmonary disease) ICD Codes: J44.9 - Chronic obstructive pulmonary disease, unspecified Status: Chronic Plan: Cont antibiotics and F/U institutional nutrition consultant recommendations (2) UTI (urinary tract infection) ICD Codes: N39.0 - Urinary tract infection Status: Acute Plan: Cont antibiotics and F/U ID recommendations (3) Hypertension ICD Codes: I10 - Hypertension Status: Chronic Plan: Better control with adjustments over the past 24 hours (4) Altered mental status ICD Codes: R41.82 - Altered mental status, unspecified Status: Acute Plan: Neuro following ans has started anticonvulsants for poss seizure. F/U pending EEG and monitor closely. Assessment and Plan AMS felt likely to seizure disorder. MS has improved. Critical care has signed off and Cars, Neuro and ID are following. Discussed Condition With Patient and thermometer maker Planning Home Problem Qualifiers (1) COPD (chronic obstructive pulmonary disease): Qualified Codes: J44.0 - Chronic obstructive pulmonary disease with acute lower respiratory infection (2) UTI (urinary tract infection): (3) Hypertension: Qualified Codes: I10 - Essential (primary) hypertension Kian Buck Feb 01, 2018 11:18
--- NOTE | 2018-02-01 15:06 | EKG ---
Date Performed: 01/31/2018 Time Performed: 15:10:56 PTAGE: 62 years EKG: SINUS TACHYCARDIA POSSIBLE LEFT ATRIAL ENLARGEMENT PROBABLE INFERIOR MYOCARDIAL INFARCTION , PROBABLY OLD ABNORMAL ECG PREVIOUS TRACING : 01/28/2018 23.16 COMPARED WITH PREVIOUS EKG SINUS TACHYCARDIA IS NEW DOCTOR: Isacc Jones Interpretating Date/Time 02/01/2018 15:04:59
--- NOTE | 2018-02-01 18:08 | MG ---
cc: Tristian Pompa MD, PhD Tristian Pompa MD PhD TEST NUMBER [id number] TECHNIQUE: A 17-channel EEG. DESCRIPTION: The background rhythm shows alpha rhythm at frequency 8-9 Hz. Amplitude is about 20 microvolts. There is frequent eye movement artifact. There is muscle artifact present. The patient is noticed to be tremulous in the head and upper body. There is no correlating epileptiform discharges. At times, there is mild slowing in the theta range from drowsiness. Photic results in a normal driving response. INTERPRETATION: Normal electroencephalogram. There is no sign of any epileptiform activity. Tristian Pompa MD, PhD TSERING/ , 05:55 PM , 06:07 PM
--- NOTE | 2018-02-01 18:08 | HHI.PR ---
Review/Management Diagnosis No evidence for cva on mri focal SZ is a possibility with left hemisphere focus, but not confirmed by eeg. EEG was performed after acute event after she received ativan. ALthough would have expected to see some focal abnormality if this were sz.. Plan will continue dilantin -change to po Diagnosis/Plan: Subjective Subjective Comments No acute events reported continues with BUE tremors Active Medications Current Medications Medications (Trade) Dose Ordered Sig/Tim Route Start Time Stop Time Status Last Admin (Aspirin Chew) 81 mg DAILY CHEW 01/29/18 09:00 02/01/18 07:57 (Pulmicort Respule Neb) 0.5 mg DAILY NEB NEB 01/29/18 08:00 02/01/18 09:11 (Vitamin D3) 5,000 units DAILY PO 01/29/18 09:00 02/01/18 07:58 (KlonoPIN) 0.5 mg QID PO 01/29/18 09:00 02/01/18 17:35 (Inderal) 10 mg Q12HR PO 01/29/18 09:00 Future Hold 01/31/18 08:59 (Zanaflex) 2 mg TID PO 01/29/18 09:00 02/01/18 17:35 (Desyrel) 75 mg HS PO 01/29/18 21:00 01/31/18 21:20 Patient Own Medication PT OWN MED: (Dextromethorphan HBr-Quinid... DAILY PO 01/29/18 09:00 Future Hold (Pill Splitter) 1 ea UNSCH PRN OTHER 01/29/18 05:30 (NS Flush) 2 ml UNSCH PRN IV FLUSH 01/29/18 05:30 02/01/18 15:22 (NS Flush) 2 ml BID IV FLUSH 01/29/18 09:00 01/31/18 21:20 (Lovenox Inj) 30 mg Q24H SQ 01/29/18 09:00 02/01/18 08:01 (Narcan Inj) 0.4 mg UNSCH PRN IV PUSH 01/29/18 05:30 (Madeleine-Colace) 1 tab BID PO 01/29/18 09:00 02/01/18 07:57 (Milk Of Magnesia Liq) 30 ml Q12H PRN PO 01/29/18 05:30 (Senokot) 17.2 mg Q12H PRN PO 01/29/18 05:30 (Dulcolax Supp) 10 mg DAILY PRN RECTAL 01/29/18 05:30 (Lactulose Liq) 30 ml DAILY PRN PO 01/29/18 05:30 (Habitrol 21 Mg Patch.24 Hr) 1 patch DAILY T-DERMAL 01/30/18 09:00 02/01/18 07:59 Miscellaneous Information 1 DAILY T-DERMAL 01/31/18 09:00 (Deltasone) 20 mg BID PO 01/30/18 21:00 02/01/18 07:57 Dextrose/Sodium Chloride 1,000 ml @ 75 mls/hr [id number] IV 01/30/18 18:30 01/31/18 21:15 (Prinivil) 10 mg DAILY PO 01/31/18 09:00 02/01/18 07:57 (Catapres) 0.1 mg Q6H PRN PO 01/31/18 12:00 01/31/18 12:30 (Cerebyx Inj) 100 mgpe Q8HR IV 01/31/18 22:00 02/01/18 12:53 (Ativan Inj) 1 mg Q4H PRN IV PUSH 01/31/18 16:00 (Trandate) 200 mg Q8H PO 01/31/18 17:00 02/01/18 16:30 (Apresoline) 50 mg Q8HR PRN PO 01/31/18 16:45 Ceftriaxone Sodium 2000 mg/ Sodium Chloride 100 ml @ 200 mls/hr Q24H IV 01/31/18 21:00 01/31/18 21:16 Allergies Allergies Coded Allergies No Known Allergies (Verified Allergy, Unknown, 01/29/18) Exam I&O / VS 02/01/18 02/01/18 02/02/18 15:00 23:00 07:00 # Voids 3 2 # Bowel Movements 1 Vital Signs Date Time Temp Pulse Resp B/P (MAP) Pulse Ox O2 Delivery O2 Flow Rate FiO2 02/01/18 16:49 105 02/01/18 15:43 97.9 105 18 154/73 (100) 94 02/01/18 12:44 75 02/01/18 12:23 97.5 76 18 151/73 (99) 94 02/01/18 10:09 78 02/01/18 09:13 98 Nasal Cannula 2.00 02/01/18 08:41 98.0 77 18 128/59 (82) 94 Manual Cuff/Auscultation 02/01/18 05:00 98.8 79 18 118/64 (82) 94 02/01/18 00:30 98.7 80 19 120/69 (86) 96 01/31/18 20:00 98.0 70 19 104/57 (73) 95 Respiratory: Lungs CTA, Non-labored respirations Cardiology: Normal rate, Regular Rhythm Musculoskeletal: ROM, Swelling Exam Comments alert, oriented, speech fluent. follow commands CN intact MOTOR--pronounced tremors BUE R>L 5/5 strength BUE Objective Micro and Labs Laboratory Tests Test 01/31/18 18:40 02/01/18 05:00 Urine Color YELLOW Urine Turbidity CLEAR Urine pH 7.0 Urine Specific [place] 1.016 Urine Protein NEG Urine Glucose (UA) NEG Urine Ketones NEG Urine Occult Blood NEG Urine Nitrite NEG Urine Bilirubin NEG Urine Urobilinogen LESS THAN 2.0 Urine Leukocyte Esterase NEG Urine WBC 1 Urine Hyaline Casts 2 Microscopic Urinalysis Comment CATH-CULT NOT IND White Blood Count 12.4 Red Blood Count 4.51 Hemoglobin 14.2 Hematocrit 41.6 Mean Corpuscular Volume 92.3 Mean Corpuscular Hemoglobin 31.5 Mean Corpuscular Hemoglobin Concent 34.1 Red Cell Distribution Width 13.0 Platelet Count 345 Mean Platelet Volume 8.5 Blood Urea Nitrogen 13 Creatinine 0.62 Random Glucose 149 Calcium Level 9.1 Sodium Level 139 Potassium Level 3.8 Chloride Level 106 Carbon Dioxide Level 22.3 Anion Gap 11 Estimat Glomerular Filtration Rate 98 Phenytoin (Dilantin) Level 13.9 Date/Time Source Procedure Growth Status 01/31/18 17:35 Blood Peripheral Aerobic Blood Culture - Preliminary NO GROWTH IN 1 DAY Resulted 01/31/18 17:35 Blood Peripheral Anaerobic Blood Culture - Preliminary NO GROWTH IN 1 DAY Resulted 01/28/18 23:30 Urine Random Urine Urine Culture - Final Escherichia Coli Complete Diagnostic Tests EEG from yesterday shortly after the event was normal. Tristian Pompa MD PhD Feb 01, 2018 18:08
[2018-02-01] MEDS: traZODone HCL 50 MG TAB PO SCH (22:12)
[2018-02-01] MEDS: cefTRIAXone INJ 2,000 MG in SODIUM CHLORIDE 0.9% INJ 100 ML IV SCH (22:13)
[2018-02-01] MEDS: PHENYTOIN SODIUM 100 MG CAP PO SCH (22:21)
[2018-02-02] VITALS (11 sets, daily range): BP systolic 121–167; BP diastolic 68–85; PULSE 78–91; RESP 18–20; TEMP 97.6–98.4; O2SAT 95–97
[2018-02-02] MEDS: LABETALOL HCL 200 MG TAB PO SCH ×3 (01:01→15:53)
[2018-02-02] MEDS: PHENYTOIN SODIUM 100 MG CAP PO SCH ×3 (05:42→21:36)
[2018-02-02 06:03] LABS: HEMATOCRIT 41.6 % (35.0-46.0); HEMOGLOBIN 14.1 GM/DL (11.6-15.3); MEAN CELL VOLUME 92.5 FL (80.0-100.0); MEAN CORPUSCULAR HEMOGLOBIN 31.3 PG (27.0-34.0); MEAN CORPUSCULAR HGB CONC 33.9 % (32.0-36.0); PLATELET COUNT 371 TH/MM3 (150-450); RED CELL DISTRIBUTION WIDTH 12.8 % (11.6-17.2)
[2018-02-02 06:25] LABS: BICARBONATE 21.5 MEQ/L (21.0-32.0); CALCIUM 8.9 MG/DL (8.5-10.1); CREATININE 0.67 MG/DL (0.50-1.00)
[2018-02-02] MEDS: SODIUM CHLORIDE 0.9% FLUSH 10 ML FLUSH IV FLUSH SCH ×2 (07:38→21:37)
[2018-02-02] MEDS: REMOVE OLD PATCH T-DERMAL SCH (07:39)
[2018-02-02] MEDS: NICOTINE 21 MG/24 HR PATCH T-DERMAL SCH (07:41)
[2018-02-02] MEDS: clonazePAM 0.5 MG TAB PO SCH ×4 (07:41→21:28)
[2018-02-02] MEDS: DOCUSATE SODIUM 50 MG/SENNA 8.6 MG TAB PO SCH ×2 (07:42→21:00)
[2018-02-02] MEDS: predniSONE 20 MG TAB PO SCH ×2 (07:42→21:28)
[2018-02-02] MEDS: CHOLECALCIFEROL (VIT D3) 5000 UNIT CAP PO SCH (07:42)
[2018-02-02] MEDS: LISINOPRIL 10 MG TAB PO SCH (07:42)
[2018-02-02] MEDS: ASPIRIN 81 MG CHEW TAB CHEW SCH (07:42)
[2018-02-02] MEDS: ENOXAPARIN SODIUM 30 MG/0.3 ML SYRINGE SQ SCH (07:43)
[2018-02-02] MEDS: RESP: BUDESONIDE 0.5 MG/2 ML NEB NEB SCH (08:25)
[2018-02-02] MEDS: DEXT 5%-NACL 0.45% 1000 ML INJ 1,000 ML IV SCH (13:08)
--- NOTE | 2018-02-02 13:31 | HHI.PR ---
Subjective Remarks She is awake and alert this AM and has no complaints of SOB. She is afebrile and her VS are stable. Objective Vital Signs Date Time Temp Pulse Resp B/P (MAP) Pulse Ox O2 Delivery O2 Flow Rate FiO2 02/02/18 12:00 97.6 78 18 121/84 (96) 96 02/02/18 09:29 87 02/02/18 08:26 95 Nasal Cannula 2.00 02/02/18 08:00 97.7 84 18 147/68 (94) 96 02/02/18 04:00 98.4 82 18 159/85 (109) 95 02/02/18 00:30 86 02/02/18 00:04 98.1 91 18 167/82 (110) 97 02/01/18 20:30 90 02/01/18 20:00 97.5 87 18 154/72 (99) 97 02/01/18 18:08 94 Nasal Cannula 2.00 02/01/18 16:49 105 02/01/18 15:43 97.9 105 18 154/73 (100) 94 I/O 02/01/18 02/01/18 02/01/18 02/02/18 02/02/18 02/02/18 07:00 15:00 23:00 07:00 15:00 23:00 Intake Total 250 ml Balance 250 ml Intake Oral 250 ml # Voids 8 3 2 2 3 # Bowel Movements 0 1 1 1 Result Diagram: 02/02/18 0530 02/02/18 0530 Imaging Last Impressions Head Magnetic Resonance Angiography 01/31/18 0000 Signed Impressions: CONCLUSION: Atherosclerotic disease of multiple branches bilaterally. Head CT 01/31/18 Signed Impressions: CONCLUSION: Chronic small vessel ischemic and atrophic changes and not signifi cantly changed. Findings were reported to Dr. Tristian Pompa by myself at 15:34 ho urs. Chest X-Ray 01/31/18 Signed Impressions: CONCLUSION: Mild bibasilar areas of atelectasis or consolidation. Brain MRI 01/31/18 Signed Impressions: CONCLUSION: Chronic small vessel ischemic and atrophic changes. Objective Remarks GENERAL: Awake, alert and conversive SKIN: Warm and dry. HEAD: Normocephalic. EYES: No scleral icterus. No injection or drainage. NECK: Supple, trachea midline. No JVD or lymphadenopathy. CARDIOVASCULAR: Regular rate and rhythm without murmurs, gallops, or rubs. RESPIRATORY: Breath sounds equal bilaterally. No accessory muscle use. GASTROINTESTINAL: Abdomen soft, non-tender, nondistended. MUSCULOSKELETAL: No cyanosis, or edema. BACK: Nontender without obvious deformity. No CVA tenderness. Medications and IVs Current Medications Medications (Trade) Dose Ordered Sig/Tim Route Start Time Stop Time Status Last Admin (Aspirin Chew) 81 mg DAILY CHEW 01/29/18 09:00 02/02/18 07:42 (Pulmicort Respule Neb) 0.5 mg DAILY NEB NEB 01/29/18 08:00 02/02/18 08:25 (Vitamin D3) 5,000 units DAILY PO 01/29/18 09:00 02/02/18 07:42 (KlonoPIN) 0.5 mg QID PO 01/29/18 09:00 02/02/18 13:08 (Inderal) 10 mg Q12HR PO 01/29/18 09:00 Future Hold 01/31/18 08:59 (Zanaflex) 2 mg TID PO 01/29/18 09:00 02/02/18 13:09 (Desyrel) 75 mg HS PO 01/29/18 21:00 02/01/18 22:12 Patient Own Medication PT OWN MED: (Dextromethorphan HBr-Quinid... DAILY PO 01/29/18 09:00 Future Hold (Pill Splitter) 1 ea UNSCH PRN OTHER 01/29/18 05:30 (NS Flush) 2 ml UNSCH PRN IV FLUSH 01/29/18 05:30 02/01/18 15:22 (NS Flush) 2 ml BID IV FLUSH 01/29/18 09:00 02/02/18 07:38 (Lovenox Inj) 30 mg Q24H SQ 01/29/18 09:00 02/02/18 07:43 (Narcan Inj) 0.4 mg UNSCH PRN IV PUSH 01/29/18 05:30 (Madeleine-Colace) 1 tab BID PO 01/29/18 09:00 02/02/18 07:42 (Milk Of Magnesia Liq) 30 ml Q12H PRN PO 01/29/18 05:30 (Senokot) 17.2 mg Q12H PRN PO 01/29/18 05:30 (Dulcolax Supp) 10 mg DAILY PRN RECTAL 01/29/18 05:30 (Lactulose Liq) 30 ml DAILY PRN PO 01/29/18 05:30 (Habitrol 21 Mg Patch.24 Hr) 1 patch DAILY T-DERMAL 01/30/18 09:00 02/02/18 07:41 Miscellaneous Information 1 DAILY T-DERMAL 01/31/18 09:00 02/02/18 07:39 (Deltasone) 20 mg BID PO 01/30/18 21:00 02/02/18 07:42 Dextrose/Sodium Chloride 1,000 ml @ 75 mls/hr [id number] IV 01/30/18 18:30 02/02/18 13:08 (Prinivil) 10 mg DAILY PO 01/31/18 09:00 02/02/18 07:42 (Catapres) 0.1 mg Q6H PRN PO 01/31/18 12:00 01/31/18 12:30 (Ativan Inj) 1 mg Q4H PRN IV PUSH 01/31/18 16:00 (Trandate) 200 mg Q8H PO 01/31/18 17:00 02/02/18 07:41 (Apresoline) 50 mg Q8HR PRN PO 01/31/18 16:45 Ceftriaxone Sodium 2000 mg/ Sodium Chloride 100 ml @ 200 mls/hr Q24H IV 01/31/18 21:00 02/01/18 22:13 (Dilantin) 100 mg Q8HR PO 02/01/18 22:00 02/02/18 13:09 Assessment and Plan Problem List: (1) COPD (chronic obstructive pulmonary disease) ICD Codes: J44.9 - Chronic obstructive pulmonary disease, unspecified Status: Chronic Plan: Cont antibiotics and F/U python consultant recommendations. She is gradually improving. (2) UTI (urinary tract infection) ICD Codes: N39.0 - Urinary tract infection Status: Acute Plan: Cont antibiotics and F/U ID recommendations (3) Hypertension ICD Codes: I10 - Hypertension Status: Chronic Plan: Better control with adjustments over the past 48 hours (4) Altered mental status ICD Codes: R41.82 - Altered mental status, unspecified Status: Acute Plan: Neuro following and has started anticonvulsants for poss seizure. EEG said to be nondiagnostic. Assessment and Plan AMS felt likely to seizure disorder. MS has improved. Critical care has signed off and Cars, Neuro and ID are following. Discussed Condition With Patient Discharge Planning HOme Problem Qualifiers (1) COPD (chronic obstructive pulmonary disease): Qualified Codes: J44.0 - Chronic obstructive pulmonary disease with acute lower respiratory infection (2) UTI (urinary tract infection): (3) Hypertension: Qualified Codes: I10 - Essential (primary) hypertension Kian Buck Feb 02, 2018 13:31
[2018-02-02] MEDS: traZODone HCL 50 MG TAB PO SCH (21:28)
[2018-02-02] MEDS: cefTRIAXone INJ 2,000 MG in SODIUM CHLORIDE 0.9% INJ 100 ML IV SCH (21:37)
[2018-02-03] VITALS (11 sets, daily range): BP systolic 106–167; BP diastolic 58–80; PULSE 66–90; RESP 17–18; TEMP 97.7–98.6; O2SAT 93–98
[2018-02-03] MEDS: LABETALOL HCL 200 MG TAB PO SCH ×3 (01:47→17:46)
[2018-02-03] MEDS: DEXT 5%-NACL 0.45% 1000 ML INJ 1,000 ML IV SCH (02:30)
[2018-02-03] MEDS: PHENYTOIN SODIUM 100 MG CAP PO SCH ×3 (05:44→21:31)
[2018-02-03] MEDS: ENOXAPARIN SODIUM 30 MG/0.3 ML SYRINGE SQ SCH (08:46)
[2018-02-03] MEDS: CHOLECALCIFEROL (VIT D3) 5000 UNIT CAP PO SCH (08:47)
[2018-02-03] MEDS: REMOVE OLD PATCH T-DERMAL SCH (08:47)
[2018-02-03] MEDS: DOCUSATE SODIUM 50 MG/SENNA 8.6 MG TAB PO SCH ×2 (08:47→21:30)
[2018-02-03] MEDS: clonazePAM 0.5 MG TAB PO SCH ×4 (08:47→21:30)
[2018-02-03] MEDS: NICOTINE 21 MG/24 HR PATCH T-DERMAL SCH (08:47)
[2018-02-03] MEDS: LISINOPRIL 10 MG TAB PO SCH (08:47)
[2018-02-03] MEDS: SODIUM CHLORIDE 0.9% FLUSH 10 ML FLUSH IV FLUSH SCH ×2 (08:48→21:28)
[2018-02-03] MEDS: predniSONE 20 MG TAB PO SCH ×2 (08:48→21:31)
[2018-02-03] MEDS: ASPIRIN 81 MG CHEW TAB CHEW SCH (08:56)
[2018-02-03] MEDS: RESP: BUDESONIDE 0.5 MG/2 ML NEB NEB SCH (09:18)
--- NOTE | 2018-02-03 11:17 | HHI.PR ---
Subjective Remarks Awake and conversive this am,. denies CP, SOB Wants to go back to [facility] Objective Vital Signs Date Time Temp Pulse Resp B/P (MAP) Pulse Ox O2 Delivery O2 Flow Rate FiO2 02/03/18 09:23 93 Nasal Cannula 1.00 02/03/18 08:00 98.1 87 18 164/77 (106) 98 02/03/18 06:31 98.1 87 154/70 (98) 96 02/03/18 04:30 79 02/03/18 04:00 98.1 78 18 139/64 (89) 96 02/03/18 00:30 86 02/03/18 00:00 97.7 81 18 163/63 (96) 97 02/02/18 20:30 87 02/02/18 20:00 98.0 82 18 147/75 (99) 95 02/02/18 17:34 84 02/02/18 16:00 98.0 89 20 154/74 (100) 97 02/02/18 12:00 97.6 78 18 121/84 (96) 96 I/O 02/02/18 02/02/18 02/02/18 02/03/18 02/03/18 02/03/18 07:00 15:00 23:00 07:00 15:00 23:00 Intake Total 760 ml Balance 760 ml Intake Oral 760 ml # Voids 2 5 1 2 # Bowel Movements 1 2 Result Diagram: 02/02/18 0530 02/02/18 0530 Imaging Last Impressions Head Magnetic Resonance Angiography 01/31/18 0000 Signed Impressions: CONCLUSION: Atherosclerotic disease of multiple branches bilaterally. Head CT 01/31/18 Signed Impressions: CONCLUSION: Chronic small vessel ischemic and atrophic changes and not signifi cantly changed. Findings were reported to Dr. Tristian Pompa by myself at 15:34 ho urs. Chest X-Ray 01/31/18 Signed Impressions: CONCLUSION: Mild bibasilar areas of atelectasis or consolidation. Brain MRI 01/31/18 Signed Impressions: CONCLUSION: Chronic small vessel ischemic and atrophic changes. Objective Remarks GENERAL awake alert no apparent distress SKIN: No rashes, ecchymoses or lesions. Cool and dry. HEAD: Atraumatic. Normocephalic. No temporal or scalp tenderness. EYES: Pupils equal round and reactive. ENT: Nose without bleeding. Airway patent. NECK: Trachea midline. No JVD or lymphadenopathy. Supple, nontender CARDIOVASCULAR: Regular rate and rhythm without murmurs, gallops, or rubs. RESPIRATORY Breath sounds equal bilaterally, diminished at base GASTROINTESTINAL: Abdomen soft, non-tender, nondistended. MUSCULOSKELETAL: Extremities without clubbing, cyanosis, or edema. NEUROLOGICAL: Awake and alert. Cranial nerves II through XII intact. Normal speech. Medications and IVs Current Medications Medications (Trade) Dose Ordered Sig/Tim Route Start Time Stop Time Status Last Admin (Aspirin Chew) 81 mg DAILY CHEW 01/29/18 09:00 02/03/18 08:56 (Pulmicort Respule Neb) 0.5 mg DAILY NEB NEB 01/29/18 08:00 02/03/18 09:18 (Vitamin D3) 5,000 units DAILY PO 01/29/18 09:00 02/03/18 08:47 (KlonoPIN) 0.5 mg QID PO 01/29/18 09:00 02/03/18 08:47 (Inderal) 10 mg Q12HR PO 01/29/18 09:00 Future Hold 01/31/18 08:59 (Zanaflex) 2 mg TID PO 01/29/18 09:00 02/03/18 08:48 (Desyrel) 75 mg HS PO 01/29/18 21:00 02/02/18 21:28 Patient Own Medication PT OWN MED: (Dextromethorphan HBr-Quinid... DAILY PO 01/29/18 09:00 Future Hold (Pill Splitter) 1 ea UNSCH PRN OTHER 01/29/18 05:30 (NS Flush) 2 ml UNSCH PRN IV FLUSH 01/29/18 05:30 02/01/18 15:22 (NS Flush) 2 ml BID IV FLUSH 01/29/18 09:00 02/03/18 08:48 (Lovenox Inj) 30 mg Q24H SQ 01/29/18 09:00 02/03/18 08:46 (Narcan Inj) 0.4 mg UNSCH PRN IV PUSH 01/29/18 05:30 (Madeleine-Colace) 1 tab BID PO 01/29/18 09:00 02/03/18 08:47 (Milk Of Magnesia Liq) 30 ml Q12H PRN PO 01/29/18 05:30 (Senokot) 17.2 mg Q12H PRN PO 01/29/18 05:30 (Dulcolax Supp) 10 mg DAILY PRN RECTAL 01/29/18 05:30 (Lactulose Liq) 30 ml DAILY PRN PO 01/29/18 05:30 (Habitrol 21 Mg Patch.24 Hr) 1 patch DAILY T-DERMAL 01/30/18 09:00 02/03/18 08:47 Miscellaneous Information 1 DAILY T-DERMAL 01/31/18 09:00 02/03/18 08:47 (Deltasone) 20 mg BID PO 01/30/18 21:00 02/03/18 08:48 Dextrose/Sodium Chloride 1,000 ml @ 75 mls/hr [id number] IV 01/30/18 18:30 02/02/18 13:08 (Prinivil) 10 mg DAILY PO 01/31/18 09:00 02/03/18 08:47 (Catapres) 0.1 mg Q6H PRN PO 01/31/18 12:00 01/31/18 12:30 (Ativan Inj) 1 mg Q4H PRN IV PUSH 01/31/18 16:00 (Trandate) 200 mg Q8H PO 01/31/18 17:00 02/03/18 08:46 (Apresoline) 50 mg Q8HR PRN PO 01/31/18 16:45 Ceftriaxone Sodium 2000 mg/ Sodium Chloride 100 ml @ 200 mls/hr Q24H IV 01/31/18 21:00 02/02/18 21:37 (Dilantin) 100 mg Q8HR PO 02/01/18 22:00 02/03/18 05:44 Assessment and Plan Problem List: (1) PNA (pneumonia) ICD Codes: J18.9 - Pneumonia, unspecified organism Plan: cefepime, zithromycin iv, Maintain sat's, Bronchodilators (2) UTI (urinary tract infection) ICD Codes: N39.0 - Urinary tract infection Status: Acute Plan: cefepime, culture pending Afebrile (3) LISA (acute kidney injury) ICD Codes: N17.9 - Acute kidney failure, unspecified Plan: IVF NS 100/hr, monitor BMP (4) COPD (chronic obstructive pulmonary disease) ICD Codes: J44.9 - Chronic obstructive pulmonary disease, unspecified Status: Chronic Plan: Bronchodilators, Maintain saturations, Nicotine patch (5) Hypertension ICD Codes: I10 - Hypertension Status: Chronic Plan: cont home medications, monitor (6) GERD (gastroesophageal reflux disease) ICD Codes: K21.9 - Gastroesophageal reflux disease Status: Acute Plan: PPI Assessment and Plan 01/29/18- Cardiology consulted for bradycardia, Troponin negative x 1, cont on tele. 01/30/18- Afebrile, HR still running low. Seen by cardiology, Echo to be done. renal functions improved. Will dc IVF. Labs unremarkable.Urine culture still pending. Likely DC back to OR in am once cleared by cardiology. 01/30/18- Blood cultures positive, urine grew Ecoli, sensitive to Ceftipime, will cont. ID consulted for BC. She has been afebrile. BP elevated will add lisinopril She has been cleared by cardiology. Head CT done last night for episode of confusion and weakness. No acute findings. Will wait for ID rec's She is refusing her medications, she want's to go back to [employer], 02/03/18- No reported complaints, She is awake and alert this am, VSS. She has been started on Dilantin for possible seizure, EEG negative. No reported activity last 24h. Cont on Rocephin for UTI, being followed by ID, BC no growth x 3 days. She is afebrile. Will plabn to send back to [facility] in am if cleared by consults. Problem Qualifiers (1) UTI (urinary tract infection): (2) COPD (chronic obstructive pulmonary disease): Qualified Codes: J44.0 - Chronic obstructive pulmonary disease with acute lower respiratory infection (3) Hypertension: Qualified Codes: I10 - Essential (primary) hypertension Jennifer Arguello Feb 03, 2018 11:17
[2018-02-03 11:33] LABS: BICARBONATE 22.3 MEQ/L (21.0-32.0); CREATININE 0.7 MG/DL (0.50-1.00)
[2018-02-03 13:55] LABS: HEMATOCRIT 42.2 % (35.0-46.0); HEMOGLOBIN 14.2 GM/DL (11.6-15.3); MEAN CELL VOLUME 92.5 FL (80.0-100.0); MEAN CORPUSCULAR HEMOGLOBIN 31.1 PG (27.0-34.0); MEAN CORPUSCULAR HGB CONC 33.7 % (32.0-36.0); MEAN PLATELET VOLUME 8.1 FL (7.0-11.0); PLATELET COUNT 386 TH/MM3 (150-450); RED BLOOD COUNT 4.57 MIL/MM3 (4.00-5.30); RED CELL DISTRIBUTION WIDTH 13.1 % (11.6-17.2); WHITE BLOOD COUNT 17.7 TH/MM3 (4.0-11.0)
--- NOTE | 2018-02-03 15:51 | PD.CARD.PN ---
Subjective Subjective Remarks No CP or SOB, alert, mildly confused Objective Medications Current Medications Medications (Trade) Dose Ordered Sig/Tim Route Start Time Stop Time Status Last Admin (Aspirin Chew) 81 mg DAILY CHEW 01/29/18 09:00 02/03/18 08:56 (Pulmicort Respule Neb) 0.5 mg DAILY NEB NEB 01/29/18 08:00 02/03/18 09:18 (Vitamin D3) 5,000 units DAILY PO 01/29/18 09:00 02/03/18 08:47 (KlonoPIN) 0.5 mg QID PO 01/29/18 09:00 02/03/18 14:33 (Inderal) 10 mg Q12HR PO 01/29/18 09:00 Future Hold 01/31/18 08:59 (Zanaflex) 2 mg TID PO 01/29/18 09:00 02/03/18 14:33 (Desyrel) 75 mg HS PO 01/29/18 21:00 02/02/18 21:28 Patient Own Medication PT OWN MED: (Dextromethorphan HBr-Quinid... DAILY PO 01/29/18 09:00 Future Hold (Pill Splitter) 1 ea UNSCH PRN OTHER 01/29/18 05:30 (NS Flush) 2 ml UNSCH PRN IV FLUSH 01/29/18 05:30 02/01/18 15:22 (NS Flush) 2 ml BID IV FLUSH 01/29/18 09:00 02/03/18 08:48 (Lovenox Inj) 30 mg Q24H SQ 01/29/18 09:00 02/03/18 08:46 (Narcan Inj) 0.4 mg UNSCH PRN IV PUSH 01/29/18 05:30 (Madeleine-Colace) 1 tab BID PO 01/29/18 09:00 02/03/18 08:47 (Milk Of Magnesia Liq) 30 ml Q12H PRN PO 01/29/18 05:30 (Senokot) 17.2 mg Q12H PRN PO 01/29/18 05:30 (Dulcolax Supp) 10 mg DAILY PRN RECTAL 01/29/18 05:30 (Lactulose Liq) 30 ml DAILY PRN PO 01/29/18 05:30 (Habitrol 21 Mg Patch.24 Hr) 1 patch DAILY T-DERMAL 01/30/18 09:00 02/03/18 08:47 Miscellaneous Information 1 DAILY T-DERMAL 01/31/18 09:00 02/03/18 08:47 (Deltasone) 20 mg BID PO 01/30/18 21:00 02/03/18 08:48 (Prinivil) 10 mg DAILY PO 01/31/18 09:00 02/03/18 08:47 (Catapres) 0.1 mg Q6H PRN PO 01/31/18 12:00 01/31/18 12:30 (Ativan Inj) 1 mg Q4H PRN IV PUSH 01/31/18 16:00 (Trandate) 200 mg Q8H PO 01/31/18 17:00 02/03/18 08:46 (Apresoline) 50 mg Q8HR PRN PO 01/31/18 16:45 Ceftriaxone Sodium 2000 mg/ Sodium Chloride 100 ml @ 200 mls/hr Q24H IV 01/31/18 21:00 02/02/18 21:37 (Dilantin) 100 mg Q8HR PO 02/01/18 22:00 02/03/18 14:33 Vital Signs / I&O Vital Signs Date Time Temp Pulse Resp B/P (MAP) Pulse Ox O2 Delivery O2 Flow Rate FiO2 02/03/18 12:00 98.4 81 18 126/58 (80) 94 02/03/18 09:23 93 Nasal Cannula 1.00 02/03/18 08:00 98.1 87 18 164/77 (106) 98 02/03/18 06:31 98.1 87 154/70 (98) 96 02/03/18 04:30 79 02/03/18 04:00 98.1 78 18 139/64 (89) 96 02/03/18 00:30 86 02/03/18 00:00 97.7 81 18 163/63 (96) 97 02/02/18 20:30 87 02/02/18 20:00 98.0 82 18 147/75 (99) 95 02/02/18 17:34 84 02/02/18 16:00 98.0 89 20 154/74 (100) 97 I/O 02/02/18 02/02/18 02/02/18 02/03/1802/03/18 6/11/18 07:00 15:00 23:00 07:00 15:00 23:00 Intake Total 760 ml Balance 760 ml Intake Oral 760 ml # Voids 2 5 1 2 # Bowel Movements 1 2 Physical Exam GENERAL: In NAD. SKIN: Warm and dry. HEAD: Normocephalic. EYES: No scleral icterus. No injection or drainage. NECK: Supple, trachea midline. No JVD or lymphadenopathy. CARDIOVASCULAR: Regular rate and rhythm, without murmurs, gallops, or rubs. RESPIRATORY: Breath sounds equal bilaterally. No accessory muscle use. GASTROINTESTINAL: Abdomen soft, non-tender, nondistended. Laboratory Laboratory Tests Test 02/03/18 10:07 02/03/18 13:10 Blood Urea Nitrogen 11 MG/DL Creatinine 0.70 MG/DL Random Glucose 103 MG/DL Calcium Level 9.0 MG/DL Sodium Level 142 MEQ/L Potassium Level 3.7 MEQ/L Chloride Level 109 MEQ/L Carbon Dioxide Level 22.3 MEQ/L Anion Gap 11 MEQ/L Estimat Glomerular Filtration Rate 85 ML/MIN White Blood Count 17.7 TH/MM3 Red Blood Count 4.57 MIL/MM3 Hemoglobin 14.2 GM/DL Hematocrit 42.2 % Mean Corpuscular Volume 92.5 FL Mean Corpuscular Hemoglobin 31.1 PG Mean Corpuscular Hemoglobin Concent 33.7 % Red Cell Distribution Width 13.1 % Platelet Count 386 TH/MM3 Mean Platelet Volume 8.1 FL Assessment and Plan Problem List: (1) Altered mental status ICD Codes: R41.82 - Altered mental status, unspecified Status: Acute (2) Sinus tachycardia ICD Codes: R00.0 - Tachycardia, unspecified (3) Sinus bradycardia ICD Codes: R00.1 - Bradycardia, unspecified (4) Hypertension ICD Codes: I10 - Hypertension Status: Chronic (5) UTI (urinary tract infection) ICD Codes: N39.0 - Urinary tract infection Status: Acute (6) Tobacco abuse ICD Codes: Z72.0 - Tobacco abuse Status: Chronic Assessment and Plan No new cardiac issues, tele with NSR. Mental status improved. Seen by neurology , seizures suspected, but EEG unremarkable. Brain CT relatively unremarkable. Continue current program. Increase activity, PT. Problem Qualifiers (1) Hypertension: Qualified Codes: I10 - Essential (primary) hypertension (2) UTI (urinary tract infection): Odilia Villalta MD Feb 03, 2018 15:51
[2018-02-03] MEDS: traZODone HCL 50 MG TAB PO SCH (21:00)
[2018-02-03] MEDS: cefTRIAXone INJ 2,000 MG in SODIUM CHLORIDE 0.9% INJ 100 ML IV SCH (21:29)
[2018-02-04] VITALS: BP 125/63; PULSE 80; RESP 18; TEMP 97.9; O2SAT 92
[2018-02-04] MEDS: LABETALOL HCL 200 MG TAB PO SCH ×2 (01:49→10:09)
[2018-02-04 04:00] VITALS: BP 133/63; PULSE 89; RESP 18; TEMP 98; O2SAT 98
[2018-02-04] MEDS: PHENYTOIN SODIUM 100 MG CAP PO SCH (05:47)
[2018-02-04 08:00] VITALS: BP 132/74; PULSE 81; RESP 18; TEMP 98; O2SAT 99
[2018-02-04] MEDS: RESP: BUDESONIDE 0.5 MG/2 ML NEB NEB SCH (08:29)
[2018-02-04 08:39] VITALS: O2SAT 96
[2018-02-04] MEDS ORDERED: ENOXAPARIN SODIUM 40 MG/0.4 ML SYRINGE SQ SCH (10:00)
[2018-02-04] MEDS: clonazePAM 0.5 MG TAB PO SCH ×2 (10:08→13:50)
[2018-02-04] MEDS: LISINOPRIL 10 MG TAB PO SCH (10:09)
[2018-02-04] MEDS: DOCUSATE SODIUM 50 MG/SENNA 8.6 MG TAB PO SCH (10:09)
[2018-02-04] MEDS: REMOVE OLD PATCH T-DERMAL SCH (10:09)
[2018-02-04] MEDS: predniSONE 20 MG TAB PO SCH (10:09)
[2018-02-04] MEDS: ASPIRIN 81 MG CHEW TAB CHEW SCH (10:09)
[2018-02-04] MEDS: CHOLECALCIFEROL (VIT D3) 5000 UNIT CAP PO SCH (10:09)
[2018-02-04] MEDS: SODIUM CHLORIDE 0.9% FLUSH 10 ML FLUSH IV FLUSH SCH (10:10)
[2018-02-04] MEDS: NICOTINE 21 MG/24 HR PATCH T-DERMAL SCH (10:10)
[2018-02-04] MEDS ORDERED: LISI10TA3 PO (10:18)
[2018-02-04] MEDS ORDERED: DILA100C PO (10:18)
[2018-02-04] MEDS ORDERED: LABE200T2 PO (10:18)
--- NOTE | 2018-02-04 10:23 | HHI.DS ---
Discharge Summary Admission Date Jan 29, 2018 at 02:50 Admitting Diagnosis AMS, UTI, Dehydration Brief History The patient is a 62 year old female came to emergency department for altered mentation and reportedly feeling unwell in general that began in the afternoon today. The patient is a resident at [facility]. She is normally on 3 L nasal cannula O2 continuously related to a history of COPD. The patient continues to smoke 1 pack of cigarettes per day. She voices she quit 11 days ago. The patient also had scattered rhonchi according to ambulance services. She was started on Augmentin 2 days ago related to a urinary tract infection. She has a dry mouth, lip [peeling. She denies having any pain. She is able to state her name, and she can tell me the month "January" She is unsure how and why she is in the hospital. UA positive for nitrites, she does have some LISA. cxr show RLL pneumonia. CBC/BMP: 02/03/18 1310 02/03/18 1007 Significant Findings Laboratory Tests Test 02/02/18 05:30 02/03/18 10:07 02/03/18 13:10 White Blood Count 14.0 TH/MM3 (4.0-11.0) 17.7 TH/MM3 (4.0-11.0) Random Glucose 114 MG/DL (74-106) Chloride Level 108 MEQ/L (98-107) 109 MEQ/L (98-107) Estimat Glomerular Filtration Rate 85 ML/MIN (>89) PE at Discharge GENERAL awake alert no apparent distress SKIN: No rashes, ecchymoses or lesions. Cool and dry. HEAD: Atraumatic. Normocephalic. No temporal or scalp tenderness. EYES: Pupils equal round and reactive. ENT: Nose without bleeding. Airway patent. NECK: Trachea midline. No JVD or lymphadenopathy. Supple, nontender CARDIOVASCULAR: Regular rate and rhythm without murmurs, gallops, or rubs. RESPIRATORY Breath sounds equal bilaterally, diminished at base GASTROINTESTINAL: Abdomen soft, non-tender, nondistended. MUSCULOSKELETAL: Extremities without clubbing, cyanosis, or edema. NEUROLOGICAL: Awake and alert. Cranial nerves II through XII intact. Normal speech. Pt Condition on Discharge: Stable Discharge Disposition: Discharge to SNF Discharge Instructions DIET: Follow Instructions for: Heart Healthy Diet Activities you can perform: Regular-No Restrictions Additional Information Monitor BP Q shift CBC, BMP 1- 2 days Dilantin level in 2 weeks. Jennifer Arguello Feb 04, 2018 10:23
[2018-02-04 12:00] VITALS: BP 162/78; PULSE 88; RESP 18; TEMP 98.4; O2SAT 95
[2018-02-04 12:56] LABS: AUTOMATED NEUTROPHIL # 10.1 TH/MM3 (1.8-7.7); BASOPHIL # 0.1 TH/MM3 (0-0.2); BASOPHIL % 0.5 % (0.0-2.0); EOSINOPHIL # 0.6 TH/MM3 (0-0.4); EOSINOPHIL % 4.1 % (0.0-4.0); HEMATOCRIT 41.5 % (35.0-46.0); HEMOGLOBIN 14.1 GM/DL (11.6-15.3); LYMPH % 12.5 % (9.0-44.0); LYMPHOCYTE # 1.7 TH/MM3 (1.0-4.8); MEAN CELL VOLUME 92.5 FL (80.0-100.0); MEAN CORPUSCULAR HEMOGLOBIN 31.5 PG (27.0-34.0); MEAN CORPUSCULAR HGB CONC 34.1 % (32.0-36.0); MEAN PLATELET VOLUME 7.9 FL (7.0-11.0); MONOCYTE # 1.2 TH/MM3 (0-0.9); NEUT % 73.9 % (16.0-70.0); PLATELET COUNT 403 TH/MM3 (150-450); RED BLOOD COUNT 4.48 MIL/MM3 (4.00-5.30); WHITE BLOOD COUNT 13.7 TH/MM3 (4.0-11.0)
[2018-02-04 13:15] LABS: BICARBONATE 26.1 MEQ/L (21.0-32.0); CALCIUM 8.6 MG/DL (8.5-10.1); CREATININE 0.44 MG/DL (0.50-1.00)
--- NOTE | 2018-02-04 14:12 | PD.CARD.PN ---
Subjective Subjective Remarks No CP or SOB, feels better Objective Medications Current Medications Medications (Trade) Dose Ordered Sig/Tim Route Start Time Stop Time Status Last Admin (Aspirin Chew) 81 mg DAILY CHEW 01/29/18 09:00 02/04/18 10:09 (Pulmicort Respule Neb) 0.5 mg DAILY NEB NEB 01/29/18 08:00 02/04/18 08:29 (Vitamin D3) 5,000 units DAILY PO 01/29/18 09:00 02/04/18 10:09 (KlonoPIN) 0.5 mg QID PO 01/29/18 09:00 02/04/18 13:50 (Inderal) 10 mg Q12HR PO 01/29/18 09:00 Future Hold 01/31/18 08:59 (Zanaflex) 2 mg TID PO 01/29/18 09:00 02/04/18 13:50 (Desyrel) 75 mg HS PO 01/29/18 21:00 02/02/18 21:28 Patient Own Medication PT OWN MED: (Dextromethorphan HBr-Quinid... DAILY PO 01/29/18 09:00 Future Hold (Pill Splitter) 1 ea UNSCH PRN OTHER 01/29/18 05:30 (NS Flush) 2 ml UNSCH PRN IV FLUSH 01/29/18 05:30 02/01/18 15:22 (NS Flush) 2 ml BID IV FLUSH 01/29/18 09:00 02/04/18 10:10 (Narcan Inj) 0.4 mg UNSCH PRN IV PUSH 01/29/18 05:30 (Madeleine-Colace) 1 tab BID PO 01/29/18 09:00 02/04/18 10:09 (Milk Of Magnesia Liq) 30 ml Q12H PRN PO 01/29/18 05:30 (Senokot) 17.2 mg Q12H PRN PO 01/29/18 05:30 (Dulcolax Supp) 10 mg DAILY PRN RECTAL 01/29/18 05:30 (Lactulose Liq) 30 ml DAILY PRN PO 01/29/18 05:30 (Habitrol 21 Mg Patch.24 Hr) 1 patch DAILY T-DERMAL 01/30/18 09:00 02/04/18 10:10 Miscellaneous Information 1 DAILY T-DERMAL 01/31/18 09:00 02/04/18 10:09 (Deltasone) 20 mg BID PO 01/30/18 21:00 02/04/18 10:09 (Prinivil) 10 mg DAILY PO 01/31/18 09:00 02/04/18 10:09 (Catapres) 0.1 mg Q6H PRN PO 01/31/18 12:00 01/31/18 12:30 (Ativan Inj) 1 mg Q4H PRN IV PUSH 01/31/18 16:00 (Trandate) 200 mg Q8H PO 01/31/18 17:00 02/04/18 10:09 (Apresoline) 50 mg Q8HR PRN PO 01/31/18 16:45 Ceftriaxone Sodium 2000 mg/ Sodium Chloride 100 ml @ 200 mls/hr Q24H IV 01/31/18 21:00 02/03/18 21:29 (Dilantin) 100 mg Q8HR PO 02/01/18 22:00 02/04/18 05:47 (Lovenox Inj) 40 mg DAILY SQ 02/04/18 10:00 02/04/18 11:12 Vital Signs / I&O Vital Signs Date Time Temp Pulse Resp B/P (MAP) Pulse Ox O2 Delivery O2 Flow Rate FiO2 02/04/18 12:00 98.4 88 18 162/78 (106) 95 02/04/18 08:39 96 Nasal Cannula 2.00 02/04/18 08:00 98.0 81 18 132/74 (93) 99 02/04/18 04:00 98.0 89 18 133/63 (86) 98 02/04/18 00:00 97.9 80 18 125/63 (83) 92 02/03/18 23:00 66 02/03/18 20:00 98.2 80 18 106/58 (74) 97 02/03/18 16:00 98.6 90 17 167/80 (109) 93 I/O 02/03/18 02/03/18 02/03/18 02/04/18 02/04/18 02/04/18 07:00 15:00 23:00 07:00 15:00 23:00 # Voids 2 5 1 3 # Bowel Movements 2 Physical Exam GENERAL: In NAD. SKIN: Warm and dry. HEAD: Normocephalic. EYES: No scleral icterus. No injection or drainage. NECK: Supple, trachea midline. No JVD or lymphadenopathy. CARDIOVASCULAR: Regular rate and rhythm, without murmurs, gallops, or rubs. RESPIRATORY: Breath sounds equal bilaterally. No accessory muscle use. GASTROINTESTINAL: Abdomen soft, non-tender, nondistended. Laboratory Laboratory Tests Test 02/04/18 12:30 White Blood Count 13.7 TH/MM3 Red Blood Count 4.48 MIL/MM3 Hemoglobin 14.1 GM/DL Hematocrit 41.5 % Mean Corpuscular Volume 92.5 FL Mean Corpuscular Hemoglobin 31.5 PG Mean Corpuscular Hemoglobin Concent 34.1 % Red Cell Distribution Width 13.0 % Platelet Count 403 TH/MM3 Mean Platelet Volume 7.9 FL Neutrophils (%) (Auto) 73.9 % Lymphocytes (%) (Auto) 12.5 % Monocytes (%) (Auto) 9.0 % Eosinophils (%) (Auto) 4.1 % Basophils (%) (Auto) 0.5 % Neutrophils # (Auto) 10.1 TH/MM3 Lymphocytes # (Auto) 1.7 TH/MM3 Monocytes # (Auto) 1.2 TH/MM3 Eosinophils # (Auto) 0.6 TH/MM3 Basophils # (Auto) 0.1 TH/MM3 CBC Comment DIFF FINAL Differential Comment Blood Urea Nitrogen 15 MG/DL Creatinine 0.44 MG/DL Random Glucose 96 MG/DL Calcium Level 8.6 MG/DL Sodium Level 143 MEQ/L Potassium Level 3.5 MEQ/L Chloride Level 110 MEQ/L Carbon Dioxide Level 26.1 MEQ/L Anion Gap 7 MEQ/L Estimat Glomerular Filtration Rate 145 ML/MIN Assessment and Plan Problem List: (1) Altered mental status ICD Codes: R41.82 - Altered mental status, unspecified Status: Acute (2) Sinus tachycardia ICD Codes: R00.0 - Tachycardia, unspecified (3) Sinus bradycardia ICD Codes: R00.1 - Bradycardia, unspecified (4) Hypertension ICD Codes: I10 - Hypertension Status: Chronic (5) UTI (urinary tract infection) ICD Codes: N39.0 - Urinary tract infection Status: Acute (6) Tobacco abuse ICD Codes: Z72.0 - Tobacco abuse Status: Chronic Assessment and Plan Remains stable from cardiac standpoint. Tele with NSR. Mental status improved. Seen by neurology, seizures suspected, but EEG unremarkable. Continue current program. DC as planned today. Problem Qualifiers (1) Hypertension: Qualified Codes: I10 - Essential (primary) hypertension (2) UTI (urinary tract infection): Odilia Villalta MD Feb 04, 2018 14:12
== END 2018-02-04 15:08 | DRG 871 ==
LOC: NEPC 22:53 → NEDA 01-29 02:50 → NEDH 01-29 06:56 → N05B 01-29 13:59
PROVIDERS: ADMIT Family Medicine; ATTEND Family Medicine
DX: A41.59 Other Gram-negative sepsis (principal); J18.9 Pneumonia, unspecified organism; G93.41 Metabolic encephalopathy; N17.9 Acute kidney failure, unspecified; Z99.81 Dependence on supplemental oxygen; E86.0 Dehydration; N39.0 Urinary tract infection, site not specified; J44.0 Chronic obstructive pulmonary disease with (acute) lower respiratory infection; G40.89 Other seizures; J98.11 Atelectasis; I69.351 Hemiplegia and hemiparesis following cerebral infarction affecting right dominant side; R00.0 Tachycardia, unspecified; F17.210 Nicotine dependence, cigarettes, uncomplicated; I10 Essential (primary) hypertension; I16.0 Hypertensive urgency; K21.9 Gastro-esophageal reflux disease without esophagitis; F41.9 Anxiety disorder, unspecified; M19.90 Unspecified osteoarthritis, unspecified site; R60.0 Localized edema; R00.1 Bradycardia, unspecified; I25.2 Old myocardial infarction; B96.1 Klebsiella pneumoniae [K. pneumoniae] as the cause of diseases classified elsewhere; Z87.440 Personal history of urinary (tract) infections; Z79.82 Long term (current) use of aspirin
CPT/HCPCS: 36600; 51702; 70450; 70544; 70551; 71045; 80048; 80053; 80185; 80307; 81001; 82550; 82805; 82948; 83605; 83690; 83735; 83880; 84443; 84484; 85025; 85027; 85384; 85610; 85730; 86140; 86403; 86850; 86900; 86901; 87040; 87077; 87086; 87186; 87205; 93005; 94640; 94664; 95819; 96374; J0456; J0692; J0696; J1650; J2060; J7030; J7050; J7512; J7626; Q2009

== ENCOUNTER 2018-02-07 17:41 | Emergency (ER) | payer MEDICARE, OTHER ==
[~2018-02-07] VITALS: Ht 167.6 cm; Wt 66.0 kg
[~2018-02-07 17:41] MED LIST changes: +ALEV220T14 PO; +ASPI-516 CHEW; -ATOR80TA41 PO; -BACL20TA PO; +BUDE0.5S NEB; +CEFU1TAB18 PO; +CLON.5 PO; +DILA100C PO; -DIPH50TA PO; +DOCU8.6T PO; -ECASA PO; -ENAL10 PO; +FERR325T18 PO; +GABA600T PO; -HCTZ25 PO; +LABE200T2 PO; +LISI10TA3 PO; -LORA-392 PO; +NICO14DI T-DERMAL; -NICO14T TD; +NUED20CA PO; -RANI150 PO; +RANI150T PO; +TIZA2TAB PO; -TIZA4 PO; +TRAZ50TA12 PO; +TYLE325T PO; +VITA1000 PO
[2018-02-07 18:11] VITALS: BP 129/61; PULSE 74; RESP 18; TEMP 98.6; O2SAT 99
[2018-02-07] MEDS ORDERED: SODIUM CHLOR 0.9% 1000 ML INJ 1,000 ML IV ONE (18:18)
[2018-02-07] MEDS ORDERED: SODIUM CHLOR 0.9% 1000 ML INJ 800 ML IV ONE (18:18)
--- NOTE | 2018-02-07 18:20 | PD ---
HPI Chief Complaint: General Weakness Time Seen by Provider: 18:04 Travel History International Travel<30 days: No Contact w/Intl Traveler<30days: No Traveled to known affect area: No History of Present Illness HPI 62-year-old female presents to emergency department from her nursing facility for evaluation of generalized weakness. Patient was recently hospitalized for sepsis, UTI. She is discharged on the 12th this month. Patient states that the staff at her facility feel like she is not doing as well as she should. She states that she feels tired and weak. She has not had any fever or chills. She denies any nausea or vomiting. She denies any significant pain. She has no other symptoms to report. PFSH Past Medical History Arthritis: Yes Asthma: No Autoimmune Disease: No Anxiety: Yes Depression: Yes Heart Rhythm Problems: Yes Cancer: Yes (skin) Cardiovascular Problems: Yes High Cholesterol: Yes Chemotherapy: No Chest Pain: No Congestive Heart Failure: No COPD: Yes Cerebrovascular Accident: Yes (right side hemiparesis) Diabetes: No Diminished Hearing: No Endocrine: No Gastrointestinal Disorders: Yes (constipation, nausea) GERD: Yes Genitourinary: Yes Headaches: Yes Hypertension: Yes Immune Disorder: No Insomnia: Yes Kidney Stones: No Musculoskeletal: Yes Neurologic: Yes Psychiatric: Yes Reproductive: No Respiratory: Yes Immunizations Current: No Migraines: No Radiation Therapy: No Renal Failure: No Seizures: Yes Sickle Cell Disease: No Sleep Apnea: No Thyroid Disease: No Menopausal: Yes Past Surgical History Abdominal Surgery: No AICD: No Arteriovenous Shunt: No Cardiac Surgery: No Ear Surgery: No Endocrine Surgery: No Eye Surgery: No Genitourinary Surgery: No Gynecologic Surgery: No Insulin Pump: No Joint Replacement: No Neurologic Surgery: Yes (CVA 2013) Oral Surgery: No Pacemaker: No Thoracic Surgery: No Other Surgery: Yes (STOMACH SURGERY, FX ANKLE SURGERY) Social History Alcohol Use: No Tobacco Use: Yes Substance Use: No Allergies-Medications (Allergen,Severity, Reaction): Coded Allergies: No Known Allergies (Verified Allergy, Unknown, 01/29/18) Reported Meds & Prescriptions Reported Meds & Active Scripts Active Dilantin (Phenytoin Extended) 100 Mg Cap 100 Mg PO Q8HR 30 Days Lisinopril 10 Mg Tab 10 Mg PO DAILY 30 Days Labetalol (Labetalol HCl) 200 Mg Tab 200 Mg PO Q8H Ceftin (Cefuroxime Axetil) 250 Mg Tab 250 Mg PO BID 10 Days Reported Tylenol (Acetaminophen) 325 Mg Tab 325 Mg PO ONCE Aleve Arthritis (Naproxen Sodium) 220 Mg Tab 220 Mg PO BID Aspirin 81 Mg Chew 81 Mg CHEW DAILY Vitamin D-1000 (Cholecalciferol) 1,000 Unit Tab 5,000 Units PO DAILY Trazodone (Trazodone HCl) 50 Mg Tab 75 Mg PO HS Tizanidine (Tizanidine HCl) 2 Mg Tab 2 Mg PO TID Ranitidine (Ranitidine HCl) 150 Mg Tab 150 Mg PO BID Nicotine Patch (Nicotine) 14 Mg/24 Hr Patch 14 Mg T-DERMAL DAILY Klonopin (Clonazepam) 0.5 Mg Tab 0.5 Mg PO QID Gabapentin 600 Mg Tab 600 Mg PO TID Ferrous Sulfate 325 Mg (65 Mg Iron) Tablet 325 Mg PO DAILY Docusate Sodium-Senna (Sennosides-Docusate Sodium) 8.6-50 Mg Tab 1 Tab PO HS Nuedexta 20-10 mg (Dextromethorphan HBr-Quinidine) 20 Mg-10 Mg Cap 1 Cap PO DAILY Budesonide Neb 0.5 Mg/2 Ml Neb 0.5 Mg NEB DAILY NEB Review of Systems Except as stated in HPI: all other systems reviewed are Neg Physical Exam Narrative GENERAL: Chronically ill-appearing female patient, in no acute distress SKIN: Focused skin assessment warm/dry. HEAD: Atraumatic. Normocephalic. EYES: Pupils equal and round. No scleral icterus. No injection or drainage. ENT: No nasal bleeding or discharge. Mucous membranes pink and moist. NECK: Trachea midline. No JVD. CARDIOVASCULAR: Regular rate and rhythm. RESPIRATORY: No accessory muscle use. Diminished to auscultation. Breath sounds equal bilaterally. GASTROINTESTINAL: Abdomen soft, non-tender, nondistended. Hepatic and splenic margins not palpable. MUSCULOSKELETAL: No obvious deformities. No clubbing. No cyanosis. No edema. Gross movement with right upper extremity. Flaccid right lower extremity. NEUROLOGICAL: Awake and alert. No obvious cranial nerve deficits. Normal speech. PSYCHIATRIC: Appropriate mood and affect; insight and judgment normal. Data Data Last Documented VS Vital Signs Date Time Temp Pulse Resp B/P (MAP) Pulse Ox O2 Delivery O2 Flow Rate FiO2 02/07/18 20:27 76 20 123/58 (79) 98 Room Air 02/07/18 18:11 98.6 Orders Orders Complete Blood Count With Diff (02/07/18 18:18) Comprehensive Metabolic Panel (02/07/18 18:18) Lactic Acid Sepsis Protocol (02/07/18 18:18) Urinalysis - C+S If Indicated (02/07/18 18:18) Blood Culture (02/07/18 18:18) Chest, Single Ap (02/07/18 18:18) Blood Glucose (02/07/18 18:18) Ecg Monitoring (02/07/18 18:18) Iv Access Insert/Monitor (02/07/18 18:18) Cath For Specimen (02/07/18 18:18) Oximetry (02/07/18 18:18) Oxygen Administration (02/07/18 18:18) Sodium Chlor 0.9% 1000 Ml Inj (Ns 1000 M (02/07/18 18:18) Sodium Chlor 0.9% 1000 Ml Inj (Ns 1000 M (02/07/18 18:18) Ceftriaxone Inj (Rocephin Inj) (02/07/18 20:15) Ed Discharge Order (02/07/18 20:19) Labs Laboratory Tests Test 02/07/18 18:50 02/07/18 19:15 White Blood Count 12.5 TH/MM3 Red Blood Count 4.65 MIL/MM3 Hemoglobin 14.4 GM/DL Hematocrit 42.9 % Mean Corpuscular Volume 92.2 FL Mean Corpuscular Hemoglobin 31.0 PG Mean Corpuscular Hemoglobin Concent 33.6 % Red Cell Distribution Width 13.0 % Platelet Count 435 TH/MM3 Mean Platelet Volume 7.8 FL Neutrophils (%) (Auto) 70.9 % Lymphocytes (%) (Auto) 14.0 % Monocytes (%) (Auto) 6.6 % Eosinophils (%) (Auto) 8.3 % Basophils (%) (Auto) 0.2 % Neutrophils # (Auto) 8.9 TH/MM3 Lymphocytes # (Auto) 1.7 TH/MM3 Monocytes # (Auto) 0.8 TH/MM3 Eosinophils # (Auto) 1.0 TH/MM3 Basophils # (Auto) 0.0 TH/MM3 CBC Comment DIFF FINAL Differential Comment Blood Urea Nitrogen 27 MG/DL Creatinine 0.69 MG/DL Random Glucose 83 MG/DL Total Protein 6.7 GM/DL Albumin 2.8 GM/DL Calcium Level 9.0 MG/DL Alkaline Phosphatase 136 U/L Aspartate Amino Transf (AST/SGOT) 12 U/L Alanine Aminotransferase (ALT/SGPT) 21 U/L Total Bilirubin 0.3 MG/DL Sodium Level 141 MEQ/L Potassium Level 3.6 MEQ/L Chloride Level 106 MEQ/L Carbon Dioxide Level 24.8 MEQ/L Anion Gap 10 MEQ/L Estimat Glomerular Filtration Rate 86 ML/MIN Lactic Acid Level 0.8 mmol/L Urine Color YELLOW Urine Turbidity HAZY Urine pH 5.0 Urine Specific [place] 1.023 Urine Protein NEG mg/dL Urine Glucose (UA) NEG mg/dL Urine Ketones TRACE mg/dL Urine Occult Blood NEG Urine Nitrite NEG Urine Bilirubin NEG Urine Urobilinogen LESS THAN 2 mg/dL Urine Leukocyte Esterase NEG Urine WBC LESS THAN 1 /hpf Urine Squamous Epithelial Cells <1 /hpf Urine Hyaline Casts 4 /lpf Urine Mucus FEW /lpf Microscopic Urinalysis Comment CATH-CULT NOT IND MDM Medical Decision Making Medical Screen Exam Complete: Yes Emergency Medical Condition: Yes Medical Record Reviewed: Yes Differential Diagnosis UTI versus sepsis versus electrolyte abnormality versus normal exam Narrative Course 62-year-old female presents emergency department for evaluation from her long-term facility for evaluation of generalized weakness. Patient appears without distress. Her vital signs are stable. She is afebrile. Laboratory Tests Test 02/07/18 18:50 02/07/18 19:15 White Blood Count 12.5 TH/MM3 Red Blood Count 4.65 MIL/MM3 Hemoglobin 14.4 GM/DL Hematocrit 42.9 % Mean Corpuscular Volume 92.2 FL Mean Corpuscular Hemoglobin 31.0 PG Mean Corpuscular Hemoglobin Concent 33.6 % Red Cell Distribution Width 13.0 % Platelet Count 435 TH/MM3 Mean Platelet Volume 7.8 FL Neutrophils (%) (Auto) 70.9 % Lymphocytes (%) (Auto) 14.0 % Monocytes (%) (Auto) 6.6 % Eosinophils (%) (Auto) 8.3 % Basophils (%) (Auto) 0.2 % Neutrophils # (Auto) 8.9 TH/MM3 Lymphocytes # (Auto) 1.7 TH/MM3 Monocytes # (Auto) 0.8 TH/MM3 Eosinophils # (Auto) 1.0 TH/MM3 Basophils # (Auto) 0.0 TH/MM3 CBC Comment DIFF FINAL Differential Comment Blood Urea Nitrogen 27 MG/DL Creatinine 0.69 MG/DL Random Glucose 83 MG/DL Total Protein 6.7 GM/DL Albumin 2.8 GM/DL Calcium Level 9.0 MG/DL Alkaline Phosphatase 136 U/L Aspartate Amino Transf (AST/SGOT) 12 U/L Alanine Aminotransferase (ALT/SGPT) 21 U/L Total Bilirubin 0.3 MG/DL Sodium Level 141 MEQ/L Potassium Level 3.6 MEQ/L Chloride Level 106 MEQ/L Carbon Dioxide Level 24.8 MEQ/L Anion Gap 10 MEQ/L Estimat Glomerular Filtration Rate 86 ML/MIN Lactic Acid Level 0.8 mmol/L Urine Color YELLOW Urine Turbidity HAZY Urine pH 5.0 Urine Specific [place] 1.023 Urine Protein NEG mg/dL Urine Glucose (UA) NEG mg/dL Urine Ketones TRACE mg/dL Urine Occult Blood NEG Urine Nitrite NEG Urine Bilirubin NEG Urine Urobilinogen LESS THAN 2 mg/dL Urine Leukocyte Esterase NEG Urine WBC LESS THAN 1 /hpf Urine Squamous Epithelial Cells <1 /hpf Urine Hyaline Casts 4 /lpf Urine Mucus FEW /lpf Microscopic Urinalysis Comment CATH-CULT NOT IND Findings are consistent are improved for previous lab work. Leukocytosis continues to trend downward. Patient will be discharged back to her nursing facility. She is encouraged to follow-up with a primary care provider and return immediately with acute worsening symptoms. Diagnosis Primary Impression: Generalized weakness Additional Impression: Mild dehydration Referrals: Primary Care Physician Patient Instructions: Dehydration (ED), General Instructions Additional Instructions: Maintain adequate oral hydration Follow-up with her primary care provider Return immediately with acute worsening symptoms Med/Other Pt SpecificInfo: No Change to Meds Disposition: 03 DISCHARGE TO SNF Condition: Stable Sherri Avelar PEALR Feb 07, 2018 18:20
[2018-02-07 19:09] LABS: AUTOMATED NEUTROPHIL # 8.9 TH/MM3 (1.8-7.7); BASOPHIL % 0.2 % (0.0-2.0); EOSINOPHIL % 8.3 % (0.0-4.0); HEMATOCRIT 42.9 % (35.0-46.0); HEMOGLOBIN 14.4 GM/DL (11.6-15.3); LYMPHOCYTE # 1.7 TH/MM3 (1.0-4.8); MEAN CELL VOLUME 92.2 FL (80.0-100.0); MEAN CORPUSCULAR HGB CONC 33.6 % (32.0-36.0); MEAN PLATELET VOLUME 7.8 FL (7.0-11.0); MONO % 6.6 % (0.0-8.0); MONOCYTE # 0.8 TH/MM3 (0-0.9); NEUT % 70.9 % (16.0-70.0); PLATELET COUNT 435 TH/MM3 (150-450); RED BLOOD COUNT 4.65 MIL/MM3 (4.00-5.30); WHITE BLOOD COUNT 12.5 TH/MM3 (4.0-11.0)
--- NOTE | 2018-02-07 19:10 | RADRPT ---
EXAM DATE: 02/07/2018 6:45 PM EDT AGE/SEX: 62 years / Female INDICATIONS: Shortness of breath. CLINICAL DATA: This is the patient's initial encounter. Patient reports that signs and symptoms have been present for 1 day and indicates a pain score of 0/10. MEDICAL/SURGICAL HISTORY: . Hypertension. Cerebrovascular disease. Gerdy. None. COMPARISON: [facility] [place], CHEST SINGLE AP, 01/31/2018. . FINDINGS: Linear scarring or atelectasis at the lung bases. No effusion. No pneumothorax. Heart size normal. CONCLUSION: Minimal linear scarring or atelectasis at the bases. No significant change from January 31. Electronically signed by: Clint Aquino MD 02/07/2018 7:09 PM EDT
[2018-02-07 19:31] VITALS: BP 102/55; PULSE 73; RESP 20; O2SAT 98
[2018-02-07 19:36] LABS: BILIRUBIN, URINE NEG (NEG); BLOOD, URINE NEG (NEG); GLUCOSE,URINE NEG (NEG); HYALINE CAST, URINE 4 /lpf (RARE); KETONE, URINE TRACE mg/dL (NEG); MUCUS URINE FEW /lpf (OCC); NITRITE,URINE NEG (NEG); SQUAMOUS EPITHELIAL CELL URINE <1 /hpf (0-5); URINE COLOR YELLOW (YELLW/STRAW); URINE LEUKOCYTE ESTERASE NEG (NEG)
[2018-02-07 19:47] LABS: ALBUMIN 2.8 GM/DL (3.4-5.0); ALKALINE PHOSPHATASE 136 U/L (45-117); ALT (GPT) 21 U/L (10-53); AST (GOT) 12 U/L (15-37); BICARBONATE 24.8 MEQ/L (21.0-32.0); BLOOD UREA NITROGEN 27 MG/DL (7-18); CHLORIDE 106 MEQ/L (98-107); CREATININE 0.69 MG/DL (0.50-1.00); GLOMERULAR FILTRATION RATE 86 ML/MIN (>89); GLUCOSE,RANDOM 83 MG/DL (74-106); SODIUM (NA) 141 MEQ/L (136-145); TOTAL BILIRUBIN ADULT 0.3 MG/DL (0.2-1.0); TOTAL PROTEIN 6.7 GM/DL (6.4-8.2)
[2018-02-07] MEDS ORDERED: cefTRIAXone INJ 1,000 MG in SODIUM CHLORIDE 0.9% INJ 100 ML IV ONE (20:15)
[2018-02-07 20:27] VITALS: BP 123/58; PULSE 76; RESP 20; O2SAT 98
[2018-02-08] MEDS ORDERED: PHENYTOIN SODIUM 100 MG CAP PO ONE (00:45)
[2018-02-08] MEDS ORDERED: traZODone HCL 50 MG TAB PO ONE (00:45)
[2018-02-08 07:30] VITALS: BP 120/78; PULSE 72; RESP 16; TEMP 97.8; O2SAT 98
[2018-02-08 11:45] VITALS: BP 118/77; TEMP 97.8
== END 2018-02-08 11:45 ==
LOC: NEPC 17:41 → NEPE 02-08 11:45
DX: E86.0 Dehydration (principal); I10 Essential (primary) hypertension; K21.9 Gastro-esophageal reflux disease without esophagitis; J44.9 Chronic obstructive pulmonary disease, unspecified; G47.00 Insomnia, unspecified; Z72.0 Tobacco use
CPT/HCPCS: 71045; 80053; 81001; 83605; 85025; 87040; 96361; 96365; 99284; J0696; J7030; P9612